=== PATIENT | male | born 1960 | race Caucasian/White ===

== ENCOUNTER 2016-05-23 04:30 | Inpatient (IN) | payer MEDICAID, SELFPAY ==
[2016-05-23] MEDS ORDERED: SODIUM CHLORIDE 0.9% 3 ML FLUSH FLUSH PRN ×2 (04:45→08:00)
[2016-05-23] MEDS ORDERED: PANTOPRAZOLE 40 MG VIAL IV ONE (04:55)
[2016-05-23] MEDS ORDERED: NS 1,000 ML IV ONE (04:55)
[2016-05-23 05:03] LABS: AUTOMATED BASOPHIL 0.8 % (0-2); AUTOMATED EOSINOPHIL 1.4 % (0-5); AUTOMATED MONOCYTE 2.8 % (3-10); MPV 8.6 fL (7.4-10.4)
[2016-05-23 05:15] LABS: BLOOD UREA NITROGEN 18 MG/DL (9-20); CALC CORRECTED 9.2 MG/DL (8.4-10.2); CALCIUM 8.8 MG/DL (8.4-10.2); CALCULATED OSMOLALITY 257 MOs/Kg (270-290); CHLORIDE 98 mEq/L (98-107); GLUCOSE 107 MG/DL (70-99); SODIUM LEVEL 132 mEq/L (137-146); TOTAL PROTEIN 6.7 G/DL (6.3-8.2)
--- NOTE | 2016-05-23 05:20 | EDPRACDOC ---
- General Information Chief Complaint: Abdominal Pain Stated Complaint: ABD PAIN/GI BLEED Time Seen by Provider: 05/23/16 04:45 Information Source: Patient Mode Of Arrival: Ambulance Home Medications: Home Medications Albuterol Sulfate [Proair Hfa] 2 puff INH QID PRN #1 inhaler 01/21/16 Albuterol Sulfate 2.5 mg NEB Q4H #1 box 03/12/16 Fluticasone/Salmeterol [Advair 250-50] 1 puff INH .BID SEE COMMENTS 03/12/16 Fexofenadine HCl [Candace] 180 mg PO DAILY 04/07/16 Levofloxacin [Levaquin] 750 mg PO DAILY #10 tab 04/07/16 Prednisone [Sterapred 10 mg/6 day pack] 21 tab PO DIR #1 pack 04/07/16 Unk Blood Pressure 0 mg PO .SEE COMMENTS 04/07/16 Unk Cholesterol 0 mg PO .SEE COMMENTS 04/07/16 Unk Prozac 0 mg PO .SEE COMMENTS 04/07/16 Allergies/Adverse Reactions: Allergies Allergy/AdvReac Type Severity Reaction Status Date / Time No Known Allergies Allergy Verified 05/23/16 04:48 - History of Present Illness Onset: 2 days HPI: LLQ and RLQ pain with 3 brown BMs yesterday, pain worse today and tonight noticed blood after BM. BRB. no N/V. no h/o same, no blood thinners. no F/C. Pain Location: Reports: RLQ, LLQ Pain Context: Reports: Spontaneous Pain Severity: Severe Pain Quality: Reports: Cramping Pain Radiation: Reports: No Radiation Adult Abdominal History: Denies: Bowel Obstruction Modifying Factors: improves with: Nothing Associated Signs & Symptoms: Denies: Hematuria, Vomiting, Melena, Dysuria - Treatment Prior to ED Arrival Reported Medications/Treatment [facility] Treatment BLS ED Past Medical History - History Reviewed Yes Nurses notes reviewed and agree except as marked - Patient Medical History Cardiac History: Reports: Hypertension, Hypercholesterolemia Respiratory History: Reports: Asthma, COPD, Emphysema Psychological History: Reports: Anxiety. Denies: Depression Surgical History: Reports: Hernia Surgery (bilateral) - Social Medical History Smoking Status: Former smoker EDM Review of Systems - Review of Systems ROS Negative Except as Marked: Yes All systems reviewed and were negative except as marked - Physical Exam Constitutional: Alert (Awake), No apparent distress Oriented to: Time, Person, Place Last recorded Vital Signs: Last Vital Signs Temp 97.6 F 05/23/16 04:42 Pulse 112 05/23/16 04:42 Resp 18 05/23/16 04:42 BP 129/68 05/23/16 04:42 Pulse Ox 93 05/23/16 04:42 Oxygen Pulse Oxygen Saturation 93 O2 Device Room Air Oxygen Flow Rate Fraction of Inspired Oxygen ( FIO2) - HEENT Head: Normal ( normocephalic) Eye Exam: Normal (PERRL, EOMI, Sclera white) Oropharynx: Normal (Pharynx:Moist without exudate,Gums-no swelling) Tympanic Membrane: Normal ENT EAC: Normal TMJ: Normal Nose: No Symptoms Reported (septum midline) Neck: Normal (FROM, trachea at midline) - Respiratory/Cardiovascular Respiratory: Normal - CTA (BBS clear to auscultation without adventitious sounds ) Cardiovascular: Normal (RRR without murmur, gallop or rub) - GI Auscultation: Normal Palpation: Normal (Soft,No rebound or guarding, non distended) Tenderness: RLQ, LLQ. negative: RUQ, LUQ Handley's Sign: Negative Rectal Exam: Other (brown stool, guaiac positive) - Musculoskeletal Back: Normal (Non-Tender) Extremities: Normal (Normal tone, Pulses 2+ No cyanosis or edema, FROM) - Integumentary Skin: Normal, Warm, Dry Lymphatics: Normal (no adenopathy) - Neurologic Memory Impaired: Normal Motor Function: Normal (Normal tone, Pulses 2+ No cyanosis or edema, FROM) Cranial Nerve: Normal (CN II-X11 intact sensation, strength 5/5) Cerebellar: Normal Mood Description: Normal Perception: Normal - Differential Diagnosis Diverticulitis - Results 05/23/16 04:30 05/23/16 04:30 WBC 15.6 xk/uL (3.8-10.8) H 05/23/16 04:30 RBC 4.33 xM/uL (4.70-6.10) L 05/23/16 04:30 Hgb 13.7 g/dL (14.0-18.0) L 05/23/16 04:30 Hct 40.4 % (42-52) L 05/23/16 04:30 MCV 94 fL (80-94) 05/23/16 04:30 MCH 31.7 pg (27-32) 05/23/16 04:30 MCHC 33.9 g/dl (33-36) 05/23/16 04:30 RDW 13.8 % (11.5-14.5) 05/23/16 04:30 Plt Count 204 xk/uL (130-400) 05/23/16 04:30 MPV 8.6 fL (7.4-10.4) 05/23/16 04:30 Neut % (Auto) 85.0 % (45-76) H 05/23/16 04:30 Lymph % (Auto) 10.0 % (17-44) L 05/23/16 04:30 [place] % (Auto) 2.8 % (3-10) L 05/23/16 04:30 Eos % (Auto) 1.4 % (0-5) 05/23/16 04:30 Baso % (Auto) 0.8 % (0-2) 05/23/16 04:30 Absolute Neuts (auto) 13.26 xk/uL (1.7-8.2) H 05/23/16 04:30 Absolute Lymphs (auto) 1.56 xk/uL (0.65-4.75) 05/23/16 04:30 PT 10.2 SEC (9.2-11.2) 05/23/16 04:30 INR 1.0 05/23/16 04:30 Sodium 132 mEq/L (137-146) L 05/23/16 04:30 Potassium 4.3 mEq/L (3.5-5.1) 05/23/16 04:30 Chloride 98 mEq/L (98-107) 05/23/16 04:30 Carbon Dioxide 25 mMOL/L (22-33) 05/23/16 04:30 Anion Gap 13 mEq/L (8-16) 05/23/16 04:30 BUN 18 MG/DL (9-20) 05/23/16 04:30 Creatinine 1.10 MG/DL (0.66-1.25) 05/23/16 04:30 Estimated GFR (MDRD) > 60 mL/min (>=60) 05/23/16 04:30 Glucose 107 MG/DL (70-99) H 05/23/16 04:30 Calculated Osmolality 257 MOs/Kg (270-290) L 05/23/16 04:30 Calcium 8.8 MG/DL (8.4-10.2) 05/23/16 04:30 Corrected Calcium 9.2 MG/DL (8.4-10.2) 05/23/16 04:30 Total Bilirubin 0.7 MG/DL (0.2-1.3) 05/23/16 04:30 AST 20 IU/L (17-59) 05/23/16 04:30 ALT 29 IU/L (21-72) 05/23/16 04:30 Alkaline Phosphatase 73 IU/L (38-126) 05/23/16 04:30 Total Protein 6.7 G/DL (6.3-8.2) 05/23/16 04:30 Albumin 3.6 G/DL (3.5-5.0) 05/23/16 04:30 Lab Results 05/23/16 05/23/16 05/23/16 04:30 04:30 04:30 WBC 15.6 H RBC 4.33 L Hgb 13.7 L Hct 40.4 L MCV 94 MCH 31.7 MCHC 33.9 RDW 13.8 Plt Count 204 MPV 8.6 Neut % (Auto) 85.0 H Lymph % (Auto) 10.0 L [place] % (Auto) 2.8 L Eos % (Auto) 1.4 Baso % (Auto) 0.8 Absolute Neuts (auto) 13.26 H Absolute Lymphs (auto) 1.56 PT 10.2 INR 1.0 Sodium 132 L Potassium 4.3 Chloride 98 Carbon Dioxide 25 Anion Gap 13 BUN 18 Creatinine 1.10 Estimated GFR (MDRD) > 60 Glucose 107 H Calculated Osmolality 257 L Calcium 8.8 Corrected Calcium 9.2 Total Bilirubin 0.7 AST 20 ALT 29 Alkaline Phosphatase 73 Total Protein 6.7 Albumin 3.6 - EKG EKG #1 EKG Time: 05:07 -: Yes EKG interpreted by me Rate: bpm: 105 [place]: Normal Rhythm: ST Block: None Hypertrophy: None ST: Nonsp - Diagnostic Imaging Abdomen Image interpreted by: Radiologist 05/23/16 06:35 Exam(s): [id number] CT/CT ABD-PELV W/IV CM CLINICAL DATA: 55-year-old male with lower abdominal pain. EXAM: CT ABDOMEN AND PELVIS WITH CONTRAST TECHNIQUE: Multidetector CT imaging of the abdomen and pelvis was performed using the standard protocol following bolus administration of intravenous contrast. CONTRAST: 80 cc Isovue 370 COMPARISON: CT dated 04/18/2011 FINDINGS: Focal ground-glass density at the left lung base likely represent atelectatic changes. No intra-abdominal free air. Trace free fluid within the pelvis. Trace perihepatic free fluid is also noted. The liver, gallbladder, pancreas, spleen, adrenal glands, kidneys, visualized ureters appear unremarkable. There is thickening of the superior and posterior bladder wall secondary to inflammatory changes of the sigmoid colon. The prostate and seminal vesicles are grossly unremarkable. There is extensive sigmoid diverticulosis with muscular hypertrophy. There is inflammatory changes of the sigmoid colon and surrounding fat compatible with acute diverticulitis. Small pockets of extraluminal air within the pelvis compatible with focally contained microperforation. A 3.7 x 0.9 cm fluid collection within the left hemipelvis appears somewhat organized and may represent an early abscess. There is induration of the fat plane between the sigmoid colon and bladder wall. No definite fistulous tract identified on this study. Retrograde filling of the bladder with contrast may provide better evaluation if clinically indicated. There is no evidence of bowel obstruction. Normal appendix. The abdominal aorta and IVC appear patent. No portal venous gas identified. There is no adenopathy. The abdominal wall soft tissues appear unremarkable. There is degenerative changes of the spine. Bilateral L5 pars defects noted. No acute fracture. IMPRESSION: Sigmoid diverticulitis with focally contained microperforations. Trace amount of perisigmoid fluid appears somewhat organized and may represent an early abscess formation. Clinical correlation and follow-up recommended. - Departure Final Diagnosis: Diverticulitis Referrals: Maria C Maguire MD [Primary Care Provider] - One Week Decision to Admit Time: 06:36 Decision to admit date: 05/23/16 Decision to admit: from ED - Physician Consulted Hospitalist Time Called: 06:36 (d/w Aurelio, she will d/w [facility] and plan admit)
[2016-05-23] MEDS ORDERED: HYDROmorphone 1 MG INJECTION IV ONE (05:27)
[2016-05-23] MEDS ORDERED: ONDANSETRON HCL 4 MG/2 ML VIAL IV ONE ×2 (05:28→06:56)
[2016-05-23] MEDS ORDERED: Metronidazole 500 mg/100 ml 500 MG/100 ML RTU IV ONE (05:56)
[2016-05-23] MEDS ORDERED: CIPROFLOXACIN HCL 500 MG TAB PO ONE (05:56)
[2016-05-23] MEDS ORDERED: Pharmacy Review for Metformin - IV Contrast Given SCH (06:00)
--- NOTE | 2016-05-23 06:34 | DIRPT ---
CLINICAL DATA: 55-year-old male with lower abdominal pain. EXAM: CT ABDOMEN AND PELVIS WITH CONTRAST TECHNIQUE: Multidetector CT imaging of the abdomen and pelvis was performed using the standard protocol following bolus administration of intravenous contrast. CONTRAST: 80 cc Isovue 370 COMPARISON: CT dated 04/18/2011 FINDINGS: Focal ground-glass density at the left lung base likely represent atelectatic changes. No intra-abdominal free air. Trace free fluid within the pelvis. Trace perihepatic free fluid is also noted. The liver, gallbladder, pancreas, spleen, adrenal glands, kidneys, visualized ureters appear unremarkable. There is thickening of the superior and posterior bladder wall secondary to inflammatory changes of the sigmoid colon. The prostate and seminal vesicles are grossly unremarkable. There is extensive sigmoid diverticulosis with muscular hypertrophy. There is inflammatory changes of the sigmoid colon and surrounding fat compatible with acute diverticulitis. Small pockets of extraluminal air within the pelvis compatible with focally contained microperforation. A 3.7 x 0.9 cm fluid collection within the left hemipelvis appears somewhat organized and may represent an early abscess. There is induration of the fat plane between the sigmoid colon and bladder wall. No definite fistulous tract identified on this study. Retrograde filling of the bladder with contrast may provide better evaluation if clinically indicated. There is no evidence of bowel obstruction. Normal appendix. The abdominal aorta and IVC appear patent. No portal venous gas identified. There is no adenopathy. The abdominal wall soft tissues appear unremarkable. There is degenerative changes of the spine. Bilateral L5 pars defects noted. No acute fracture. IMPRESSION: Sigmoid diverticulitis with focally contained microperforations. Trace amount of perisigmoid fluid appears somewhat organized and may represent an early abscess formation. Clinical correlation and follow-up recommended. Electronically Signed By: Aryan Beaulieu M.D. On: 05/23/2016 06:31
[2016-05-23] MEDS ORDERED: MORPHINE 4 MG/ML INJECTION IV ONE (06:56)
[2016-05-23] MEDS ORDERED: IBUPROFEN 400 MG TAB PO PRN (08:00)
[2016-05-23] MEDS ORDERED: PROMETHAZINE 25 MG/ML VIAL IV PRN (08:00)
[2016-05-23] MEDS ORDERED: ALBUTEROL 0.083% 3 ML NEB NEB PRN (08:00)
[2016-05-23] MEDS ORDERED: Non-Formulary Medication ITEM (Nebulizer [Erapid Nebulizer] 1 EACH) MC SCH (08:00)
--- NOTE | 2016-05-23 08:10 | HISTPHYS ---
- Chief Complaint 55-year-old gentleman presents emergency department complaining of blood in stool. - History of Present Illness 55-year-old man history of hypertension hypercholesterolemia depression asthma and emphysema who presented to the emergency department complaining of blood in his stool and abdominal pain for about 5 days. He states he has been taking fiber 6 500 mg Tylenol tablets for the past 5 days with no relief. In the emergency department he was fully evaluated and found to have a diverticulitis with a microperforation and small abscess. He was referred to me for further evaluation and management. He complains of pain across his lower abdomen down into the groin area and up through the rectum. He states that the blood was not a large amount but was only on paper in noted in the toilet. Given his signs and symptoms and findings on CT scan patient will be admitted to the hospital for management of acute diverticulitis with abscess. With regards to his pain: LLQ and RLQ pain with 3 brown BMs yesterday, pain worse today and tonight noticed blood after BM. BRB. no N/V. no h/o same, no blood thinners. no F/C. Pain Location: Reports: RLQ, LLQ Pain Context: Reports: Spontaneous Pain Severity: Severe Pain Quality: Reports: Cramping Pain Radiation: Reports: No Radiation Adult Abdominal History: Denies: Bowel Obstruction Modifying Factors: improves with: Nothing Associated Signs & Symptoms: Denies: Hematuria, Vomiting, Melena, Dysuria - Medical History Cardiac History: Reports: Hypertension, Hypercholesterolemia Respiratory History: Reports: Asthma, COPD, Emphysema Psychological History: Reports: Anxiety. Denies: Depression - Surgical History Reports: Hernia Surgery (bilateral) - Medictions/Allergies Allergies No Known Allergies Allergy (Verified 05/23/16 04:48) Current Medication List: Reviewed Home Medications Fluticasone/Salmeterol [Advair 250-50] 1 puff INH .BID SEE COMMENTS 03/12/16 Albuterol Sulfate MDI [Proventil HFA] 2 puff INH Q4H PRN 05/23/16 Albuterol Sulfate [Proventil, Ventolin] 2.5 mg NEB Q4H PRN 05/23/16 Nebulizer [Erapid Nebulizer] 1 each MC .UNKNOWN 05/23/16 See Comments About Past Meds 0 mg PO .SEE COMMENTS 05/23/16 - Family History Reports: No Significant History - Social History Travel Outside of [place] in the Last 3 Months?: No Lives: Alone Smoking Status: Former smoker Social History: Denies: Alcohol Use, Substance Use Disorder - Review of Systems Constitutional: negative: Chills, Fever, Diaphoresis Eyes: negative: Blurred Vision, Double Vision Ears: No Symptoms Reported (No ear pain or discharge) Mouth: No Symptoms Reported (No oropharyngeal lesions or erythema) Throat/Neck: No Symptoms Reported (No throat pain or swelling.No oropharyngeal lesions or erythema.) Respiratory: No Symptoms Reported (No cough, wheezing, or shortness of breath.) Cardiovascular: No Symptoms Reported (No chest pain or palpitations.) Gastrointestinal: Abdominal Pain, Diarrhea, Hematochezia Genitourinary: No Symptoms Reported (No dysuria or hematuria.) Neurological: No Symptoms Reported (No headache, dizziness, seizures, or focal weakness.) Musculoskeletal:: No Symptoms Reported Integumentary: No Symptoms Reported Allergic/Immunologic: No Symptoms Reported (no rashes or lesions) Hematologic: No Symptoms Reported (No chronic anemia, bleeding, or easy bruising.), Other (Lymphatics- no lymph node swelling or pain.) Endocrine: No Symptoms Reported (No thyroid issues, polyuria, or polydipsia.) Psychiatric: No Symptoms Reported (Fully oriented, with normal and appropriate affect.) - Physical Exam Vital Signs: Initial Vitals Temperature 98.3 F 05/23/16 04:41 Pulse Rate 98 05/23/16 04:41 Respiratory Rate 18 05/23/16 04:41 Blood Pressure 130/76 05/23/16 04:41 Pulse Oxygen Saturation 97 05/23/16 04:41 Constitutional: Alert (Awake, Fully oriented. Normal and appropriate affect.Well appearing. Well nourished.), No apparent distress Oriented to: Time, Person, Place - HEENT Head: Normal (normocephalic, atraumatic.), Other (No cervical lymphadenopathy. No supraclavicular lymphadenopathy. Neck: No palpable mass, supple , trachea midline.) Eye: Normal (pupils equal, reactive to light, and round; EOMI, Sclera white) Oropharynx: Normal (Pharynx: Moist without exudate,Gums-no swelling, No oropharyngeal lesions or erythema, Mucous membranes are dry.) Nose: No Symptoms Reported (septum midline, Nares patent, without discharge or bleeding.) Respiratory: Normal - CTA (Clear to auscultation bilaterally. No wheezing, rales , rhonchi. Chest wall movements are symmetric. No use of accessory muscles to breathe.) Cardiovascular: Normal (RRR , Normal S1, S2. No murmurs, rubs, or gallops. PMI non-displaced. Carotids: no carotid bruits. No bradycardia or tachycardia. DP pulses 2+ bilaterally.) - GI Auscultation: Decreased Palpation: Normal (Soft,non distended,nontender. No hepatosplenomegaly.) Tenderness: Moderate, Suprapubic. negative: Guarding, Rebound, Rigidity Handley's Sign: Negative Rectal Exam: Normal Stool: Brown - Musculoskeletal Back: Normal (Non-Tender) Extremities: Normal (Normal tone, DP pulses 2+ bilaterally, No cyanosis or edema bilaterally, FROM bilaterally.) - Integumentary Skin: Normal (Clean, dry, and intact. No rashes. No lesions.) Lymphatics: Normal (No cervical lymphadenopathy. No supraclavicular lymphadenopathy.) - Neurologic Memory Impaired: Normal Motor Function: Normal (Motor 5/5 throughout.Normal tone, Pulses 2+ No cyanosis or edema, FROM) Cranial Nerve: Normal (CN II-XII intact sensation, strength 5/5) Cerebellar: Normal (Babinski: toes downgoing bilaterally. Intact Finger to nose. Sensory grossly intact to light touch. Intact rapid alternating movements bilaterally. No pronator drift.) Mood Description: Normal (Fully oriented. Normal and appropriate affect.) - Focused CV Perfusion Exam Vital Signs: Last Vital Signs Temp 97.6 F 05/23/16 04:42 Pulse 99 05/23/16 07:28 Resp 18 05/23/16 07:28 BP 113/67 05/23/16 07:28 Pulse Ox 94 05/23/16 07:28 - Lab Results Laboratory Results - last 24 hr 05/23/16 05/23/16 05/23/16 04:30 04:30 04:30 WBC 15.6 H RBC 4.33 L Hgb 13.7 L Hct 40.4 L MCV 94 MCH 31.7 MCHC 33.9 RDW 13.8 Plt Count 204 MPV 8.6 Neut % (Auto) 85.0 H Lymph % (Auto) 10.0 L [place] % (Auto) 2.8 L Eos % (Auto) 1.4 Baso % (Auto) 0.8 Absolute Neuts (auto) 13.26 H Absolute Lymphs (auto) 1.56 PT 10.2 INR 1.0 Sodium 132 L Potassium 4.3 Chloride 98 Carbon Dioxide 25 Anion Gap 13 BUN 18 Creatinine 1.10 Estimated GFR (MDRD) > 60 Glucose 107 H Calculated Osmolality 257 L Calcium 8.8 Corrected Calcium 9.2 Total Bilirubin 0.7 AST 20 ALT 29 Alkaline Phosphatase 73 Total Protein 6.7 Albumin 3.6 - Diagnostic Findings EXAM: CT ABDOMEN AND PELVIS WITH CONTRAST TECHNIQUE: Multidetector CT imaging of the abdomen and pelvis was performed using the standard protocol following bolus administration of intravenous contrast. CONTRAST: 80 cc Isovue 370 COMPARISON: CT dated 04/18/2011 FINDINGS: Focal ground-glass density at the left lung base likely represent atelectatic changes. No intra-abdominal free air. Trace free fluid within the pelvis. Trace perihepatic free fluid is also noted. The liver, gallbladder, pancreas, spleen, adrenal glands, kidneys, visualized ureters appear unremarkable. There is thickening of the superior and posterior bladder wall secondary to inflammatory changes of the sigmoid colon. The prostate and seminal vesicles are grossly unremarkable. There is extensive sigmoid diverticulosis with muscular hypertrophy. There is inflammatory changes of the sigmoid colon and surrounding fat compatible with acute diverticulitis. Small pockets of extraluminal air within the pelvis compatible with focally contained microperforation. A 3.7 x 0.9 cm fluid collection within the left hemipelvis appears somewhat organized and may represent an early abscess. There is induration of the fat plane between the sigmoid colon and bladder wall. No definite fistulous tract identified on this study. Retrograde filling of the bladder with contrast may provide better evaluation if clinically indicated. There is no evidence of bowel obstruction. Normal appendix. The abdominal aorta and IVC appear patent. No portal venous gas identified. There is no adenopathy. The abdominal wall soft tissues appear unremarkable. There is degenerative changes of the spine. Bilateral L5 pars defects noted. No acute fracture. IMPRESSION: Sigmoid diverticulitis with focally contained microperforations. Trace amount of perisigmoid fluid appears somewhat organized and may represent an early abscess formation. Clinical correlation and follow-up recommended. Electronically Signed By: Aryan Beaulieu M.D. On: 05/23/2016 06:31 - Assessment (1) Abscess of sigmoid colon due to diverticulitis K57.20 - DVTRCLI OF LG INT W PERFORATION AND ABSCESS W/O BLEEDING Acute Present on Admission: Yes Patient will be admitted into the hospital for management of acute diverticulitis with abscess and micro perforation. He will be started on levofloxacin and metronidazole. Monitor closely if exam deteriorates may consider surgical or GI consultation. Patient will be allowed to eat as tolerated. (2) Hypertension I10 - ESSENTIAL (PRIMARY) HYPERTENSION Acute Present on Admission: Yes Qualifiers: Hypertension type: essential hypertension Qualified Code(s): I10 - Essential (primary) hypertension Patient has been off medicines for some time because he cannot afford them. I will order medications from the 4 dollar list. Currently blood pressure is stable will monitor while hospitalized. Will start medications if blood pressure becomes elevated. (3) Emphysema with chronic bronchitis J44.9 - CHRONIC OBSTRUCTIVE PULMONARY DISEASE, UNSPECIFIED Acute Present on Admission: Yes Patient states that he has had asthma his whole life he smoked until he was 32 but now has developed emphysema and is disabled due to it and will start disability in December. (4) Asthma J45.909 - UNSPECIFIED ASTHMA, UNCOMPLICATED Acute Present on Admission: Yes Qualifiers: Asthma severity: moderate persistent Asthma complication type: uncomplicated Qualified Code(s): J45.40 - Moderate persistent asthma, uncomplicated Currently patient without exacerbation of asthma bowl will restart nebulizers. (5) History of depression Z86.59 - PERSONAL HISTORY OF OTHER MENTAL AND BEHAVIORAL DISORDERS Chronic Present on Admission: Yes Noted he stated that he used to take Prozac in the past but when off it because he did feel like it was working any more. (6) Hypercholesterolemia E78.00 - PURE HYPERCHOLESTEROLEMIA, UNSPECIFIED Acute Present on Admission: Yes Patient states he used to be on medication but stop taking it because he could not afford it. Will start him on something that is on the 4 dollar list at discharge. - Plan Admit to the hospital IV antibiotics monitor examination closely. Case Care Discussed with: Patient, Consultants, Nursing Staff Total Time: 55 min Critical Care: No Couseling Time (>50% in counseling/coordination): No
[2016-05-23] MEDS: MORPHINE 2 MG/ML INJECTION IV PRN ×7 (08:53→23:31)
[2016-05-23] MEDS ORDERED: FLUTICASONE/SALMETEROL 250/50 DISKUS INH SCH (09:00)
[2016-05-23] MEDS: NS/KCl 20 mEq 1,000 ML IV SCH ×4 (10:10→19:31)
[2016-05-23] MEDS: Levofloxacin 750 mg/150 ml D5W 750 MG/150 ML RTU IV SCH (10:10)
[2016-05-23] MEDS: Albuterol/Ipratropium Neb 3 ML NEB NEB SCH ×3 (11:52→19:00)
[2016-05-23] MEDS: FLUTICASONE/SALMETEROL 250/50 DISKUS INH SCH ×2 (11:53→21:55)
[2016-05-23] MEDS: Metronidazole 500 mg/100 ml 500 MG/100 ML RTU IV SCH ×3 (12:00→23:18)
[2016-05-23] MEDS: PROBIOTIC BLEND TAB PO SCH ×2 (12:01→16:57)
[2016-05-23] MEDS ORDERED: SODIUM CHLORIDE 0.9% 10 ML FLUSH FLUSH ONE (14:53)
[2016-05-23] MEDS: SODIUM CHLORIDE 0.9% 3 ML FLUSH FLUSH SCH ×3 (15:41→16:42)
[2016-05-23] MEDS ORDERED: Vaccine Screening Complete SCH (17:00)
[2016-05-23] MEDS: Aluminum;Magnesium;Simethicone 30 ML UDC PO PRN (18:13)
[2016-05-23] MEDS: ENOXAPARIN 40 MG/0.4 ML PFS SQ SCH (18:36)
[2016-05-24] MEDS: Albuterol/Ipratropium Neb 3 ML NEB NEB SCH ×4 (01:00→19:13)
[2016-05-24] MEDS ORDERED: FLUTICASONE/SALMETEROL 250/50 DISKUS INH SCH (02:00)
[2016-05-24] MEDS: NS/KCl 20 mEq 1,000 ML IV SCH ×3 (02:10→14:00)
[2016-05-24] MEDS: MORPHINE 2 MG/ML INJECTION IV PRN ×10 (02:10→22:49)
[2016-05-24] MEDS: Metronidazole 500 mg/100 ml 500 MG/100 ML RTU IV SCH ×4 (05:14→22:49)
[2016-05-24] MEDS: ACETAMINOPHEN 325 MG/TAB TABLET PO PRN ×2 (05:14→14:03)
[2016-05-24] MEDS: SODIUM CHLORIDE 0.9% 3 ML FLUSH FLUSH SCH ×3 (05:29→18:07)
[2016-05-24 05:54] LABS: AUTOMATED BASOPHIL 0.2 % (0-2); AUTOMATED EOSINOPHIL 1.1 % (0-5); AUTOMATED LYMPH 7.6 % (17-44); AUTOMATED MONOCYTE 3.5 % (3-10); AUTOMATED NEUTROPHIL 87.6 % (45-76); MPV 8.2 fL (7.4-10.4)
[2016-05-24 06:22] LABS: BLOOD UREA NITROGEN 12 MG/DL (9-20); CALCIUM 7.7 MG/DL (8.4-10.2); CALCULATED OSMOLALITY 253 MOs/Kg (270-290); CHLORIDE 99 mEq/L (98-107); GLUCOSE 133 MG/DL (70-99); SODIUM LEVEL 130 mEq/L (137-146)
[2016-05-24] MEDS: FLUTICASONE/SALMETEROL 250/50 DISKUS INH SCH ×2 (07:37→19:15)
[2016-05-24] MEDS: Levofloxacin 750 mg/150 ml D5W 750 MG/150 ML RTU IV SCH (09:14)
[2016-05-24] MEDS: PROBIOTIC BLEND TAB PO SCH ×2 (13:04→18:09)
--- NOTE | 2016-05-24 17:26 | GENMEDPROG ---
Subjective Note: Patient complains of feeling bloated abdomen looks very tight. He is having significant continued pain. Notes Reviewed: Yes Events from last night noted and discussed with Clinical Staff Current Medication List: Reviewed Currently: Reports: Abdominal Pain. Denies: Diarrhea, Nausea and Vomiting, Fever/Chills DVT Prophylaxis: Yes - Physical Examination Vital Signs and I&O: Last Vital Signs Temp 98.6 F 05/24/16 10:14 Pulse 98 05/24/16 10:14 Resp 18 05/24/16 10:14 BP 111/68 05/24/16 10:14 Pulse Ox 95 05/24/16 10:14 Oxygen Pulse Oxygen Saturation 95 O2 Device Room Air Oxygen Flow Rate Fraction of Inspired Oxygen ( FIO2) Intake & Output 05/21/16 05/22/16 05/23/16 05/24/16 23:59 23:59 23:59 23:59 Intake Total 2240 3051 Output Total 250 895 Balance 1989 2155 Patient's weight 73.527 kg 74.752 kg General: Alert, Oriented x3, No acute distress, Well appearing, Well nourished HEENT: Normal (Normocephalic, atraumatic;EOMI.Sclera white, Nares patent, without discharge or bleeding. No oropharyngeal lesions or erythema. Mucous membranes are dry.) Lymphatics: Normal (No cervical lymphadenopathy. No supraclavicular lymphadenopathy.) Respiratory: Normal - CTA (Clear to auscultation bilaterally. No wheezing, rales , rhonchi. Chest wall movements are symmetric. No use of accessory muscles to breathe.) Cardiovascular: Regular rate and rhythm (No bradycardia or tachycardia), Normal S1, No Gallops,Rubs/Murmurs, Normal S2, Good Pedal Pulses (DP pulses 2+ bilaterally) GI: Tenderness, Other (Very firm compared to yesterday. Bowel sounds decreased) . negative: Soft Extremities/Musculoskeletal: Normal pulses (DP pulses 2+ bilaterally) Skin: Warm,Dry and Intact, No rashes, No significant lesion Neurological: Strength at 5/5 X4 ext (Motor 5/5 throughout.), Normal tone, Cranial nerves 3-12 NL ( 2-12 grossly intact.) Psych/Mental Status: Appropriate, Normal Affect Lab/DI/Studies Reviewed: Laboratory Results - last 24 hr 05/24/16 05/24/16 05:35 05:35 WBC 12.4 H RBC 3.67 L Hgb 11.7 L D Hct 34.6 L MCV 94 MCH 32.0 MCHC 34.0 RDW 13.9 Plt Count 162 MPV 8.2 Neut % (Auto) 87.6 H Lymph % (Auto) 7.6 L Flagler % (Auto) 3.5 Eos % (Auto) 1.1 Baso % (Auto) 0.2 Absolute Neuts (auto) 10.79 H Absolute Lymphs (auto) 0.87 Sodium 130 L Potassium 3.9 Chloride 99 Carbon Dioxide 24 Anion Gap 11 BUN 12 Creatinine 1.00 Estimated GFR (MDRD) > 60 Glucose 133 H Calculated Osmolality 253 L Calcium 7.7 L Magnesium 1.60 - Assessment (1) Abscess of sigmoid colon due to diverticulitis Acute K57.20 - DVTRCLI OF LG INT W PERFORATION AND ABSCESS W/O BLEEDING Comment/Plan: Abdominal pain was today: Patient is more bloated. Will consult Dr. Kiran from surgery for further evaluation. (2) Hypertension Acute I10 - ESSENTIAL (PRIMARY) HYPERTENSION Qualifiers: Hypertension type: essential hypertension Qualified Code(s): I10 - Essential (primary) hypertension Comment/Plan: Blood pressure currently acceptable. (3) Emphysema with chronic bronchitis Acute J44.9 - CHRONIC OBSTRUCTIVE PULMONARY DISEASE, UNSPECIFIED Comment/ Plan: Continue supportive care. No evidence of decompensation. (4) Asthma Acute J45.909 - UNSPECIFIED ASTHMA, UNCOMPLICATED Qualifiers: Asthma severity: moderate persistent Asthma complication type: uncomplicated Qualified Code(s): J45.40 - Moderate persistent asthma, uncomplicated Comment/Plan: Currently patient without exacerbation of asthma bowl will restart nebulizers. (5) History of depression Chronic Z86.59 - PERSONAL HISTORY OF OTHER MENTAL AND BEHAVIORAL DISORDERS Comment/Plan: Noted he stated that he used to take Prozac in the past but when off it because he did feel like it was working any more. (6) Hypercholesterolemia Acute E78.00 - PURE HYPERCHOLESTEROLEMIA, UNSPECIFIED Comment/Plan: Patient states he used to be on medication but stop taking it because he could not afford it. Will start him on something that is on the 4 dollar list at discharge. - Plan Continue current IV antibiotics. Case Care Discussed with: Patient Education/Counseling Given To: Patient Education/Counseling Given Regarding: Diagnosis, Treatment, Prognosis Total Time: 45 minutes. Critical Care: No Couseling Time (>50% in counseling/coordination): No
[2016-05-24] MEDS ORDERED: MORPHINE 2 MG/ML INJECTION IV PRN (17:34)
--- NOTE | 2016-05-24 17:39 | PCM.SURGCO ---
Consultation Date: 05/24/16 Requesting Physician: Nidhi Edge Consult Reason: Abdominal Pain - History of Present Illness 55 YO WM with diverticulitis. Has persistent pain. Denies any previous episodes of this. No melena or hematochezia, no dysuria. Denies any trauma. Has never had a colonoscopy. The pain is constant and at times severe. No alleviating factors other than pain meds. His CT showed diverticulitis. Chief Complaint: 55-year-old gentleman presents emergency department complaining of blood in stool. - Past Medical and Surgical History Cardiac History: Reports: No Significant History Respiratory History: Reports: No Significant History GI/ History: Reports: No Significant History Systemic History: Reports: No Significant History Musculoskeletal History: Reports: No Significant History Psychological History: Reports: No Significant History. Denies: Substance Use Disorder Neurological History: Reports: No Significant History Past Surgical History: Reports: No Significant History Allergies No Known Allergies Allergy (Verified 05/23/16 04:48) Home Medications Fluticasone/Salmeterol [Advair 250-50] 1 puff INH .BID SEE COMMENTS 03/12/16 Albuterol Sulfate MDI [Proventil HFA] 2 puff INH Q4H PRN 05/23/16 Albuterol Sulfate [Proventil, Ventolin] 2.5 mg NEB Q4H PRN 05/23/16 Nebulizer [Erapid Nebulizer] 1 each MC .UNKNOWN 05/23/16 See Comments About Past Meds 0 mg PO .SEE COMMENTS 05/23/16 - Social History Social History: Denies: Substance Use Disorder - Family History Reports: No Significant History - Review of Systems Constitutional: Chills, Fever, Fatigue, Loss of Appetite Eyes: negative: Discharge, Photophobia Ears: negative: Hearing Loss, Tinnitus Nose: negative: Deformity, Ecchymosis Throat/Neck: Hoarseness, Snoring Respiratory: negative: Cough, Wheezing Cardiovascular: negative: Chest Pain, Palpitations Gastrointestinal: Nausea, Abdominal Pain. negative: Vomiting, Diarrhea, Melena , Hematochezia, Dysphasia Genitourinary: negative: Dysuria, Hematuria Neurological: negative: Headache, Seizure Musculoskeletal:: negative: Joint Pain Integumentary: negative: Itching, Rash - Physical Exam Vital Signs: Initial Vitals Temperature 98.3 F 05/23/16 04:41 Pulse Rate 98 05/23/16 04:41 Respiratory Rate 18 05/23/16 04:41 Blood Pressure 130/76 05/23/16 04:41 Pulse Oxygen Saturation 97 05/23/16 04:41 Constitutional: No apparent distress, Alert Oriented to: Time, Person, Place - HEENT Head: negative: Deformity, Swelling Nose: negative: Bleeding, Discharge Respiratory: negative: Rales, Rhonchi, Wheezes Cardiovascular: Normal. negative: Irregular, Diastolic murmur, Systolic murmur - GI Auscultation: Normal Palpation: Tense. negative: Enlarged liver, Enlarged spleen Tenderness: Diffuse, Moderate. negative: Guarding, Rebound Handley's Sign: Negative - Musculoskeletal Back: negative: Ecchymosis, Laceration, CVA Tenderness Extremities: negative: Calf Tenderness, Edema - Lab Results 05/24/16 05:35 05/24/16 05:35 - Assessment/Plan (1) Asthma J45.909 - UNSPECIFIED ASTHMA, UNCOMPLICATED Acute Present on Admission: Yes moderate persistent uncomplicated J45.40 - Moderate persistent asthma, uncomplicated (2) Diverticulitis K57.92 - DVTRCLI OF INTEST, PART UNSP, W/O PERF OR ABSCESS W/O BLEED Acute Present on Admission: Yes (3) Emphysema with chronic bronchitis J44.9 - CHRONIC OBSTRUCTIVE PULMONARY DISEASE, UNSPECIFIED Acute (4) Hypertension I10 - ESSENTIAL (PRIMARY) HYPERTENSION Acute Present on Admission: Yes essential hypertension I10 - Essential (primary) hypertension Plan: Will change to clear liquids. Continue with current antibiotics. Adjust pain meds. Will repeat las in AM. Increase activity.
[2016-05-24] MEDS: ENOXAPARIN 40 MG/0.4 ML PFS SQ SCH (18:08)
[2016-05-24] MEDS: SIMETHICONE 80 MG TAB PO PRN ×2 (18:14→22:05)
[2016-05-25] MEDS: Albuterol/Ipratropium Neb 3 ML NEB NEB SCH ×4 (01:14→19:24)
[2016-05-25] MEDS: SIMETHICONE 80 MG TAB PO PRN ×3 (01:28→15:43)
[2016-05-25] MEDS: MORPHINE 2 MG/ML INJECTION IV PRN ×8 (01:28→22:37)
[2016-05-25] MEDS: SODIUM CHLORIDE 0.9% 3 ML FLUSH FLUSH SCH ×2 (05:12→17:31)
[2016-05-25] MEDS: Metronidazole 500 mg/100 ml 500 MG/100 ML RTU IV SCH ×4 (05:14→17:32)
[2016-05-25] MEDS: FLUTICASONE/SALMETEROL 250/50 DISKUS INH SCH ×2 (08:53→19:30)
[2016-05-25] MEDS: Docusate Sodium 100 MG CAP PO SCH ×2 (09:28→19:47)
[2016-05-25] MEDS: Levofloxacin 750 mg/150 ml D5W 750 MG/150 ML RTU IV SCH (09:28)
[2016-05-25] MEDS: ACETAMINOPHEN 325 MG/TAB TABLET PO PRN (09:35)
[2016-05-25] MEDS: PROBIOTIC BLEND TAB PO SCH ×2 (11:32→17:31)
--- NOTE | 2016-05-25 16:26 | PCM.SURGRO ---
- Subjective Patient: Reports: No new complaints, Still having pain, Pain is less, No Flatus , No Bowel Movement - Objective / Physical Exam Vital Signs: Temperature: 98.2 F (05/25/16 07:22) HR: 104 (05/25/16 07:22)RR: 18 (05/25/16 07 :22) BP: 100/61 (05/25/16 07:22)Pulse Ox: 95 (05/25/16 07:22) General: Alert, Oriented x3 HEENT: Normal, Anicteric Sclera Respiratory: Accessory Muscle Use Cardiovascular: Regular rate and rhythm Gastrointestinal: Distended, Tender Back: Normal Extremities: Normal pulses Psych/Mental Status: Appropriate Neurological: Normal Steady Gait Skin: Warm,Dry and Intact Laboratory/Diagnostics Reviewed: 05/24/16 05:35 05/24/16 05:35 - Assessment and Plan (1) Asthma Acute J45.909 - UNSPECIFIED ASTHMA, UNCOMPLICATED Present on Admission: Yes moderate persistent uncomplicated J45.40 - Moderate persistent asthma, uncomplicated (2) Diverticulitis Acute K57.92 - DVTRCLI OF INTEST, PART UNSP, W/O PERF OR ABSCESS W/O BLEED Present on Admission: Yes (3) Emphysema with chronic bronchitis Acute J44.9 - CHRONIC OBSTRUCTIVE PULMONARY DISEASE, UNSPECIFIED Present on Admission: Yes (4) Hypertension Acute I10 - ESSENTIAL (PRIMARY) HYPERTENSION Present on Admission: Yes essential hypertension I10 - Essential (primary) hypertension Plan: Patient slightly improved today. Will need to continue with IV antibiotics and remain on clear liquids.
[2016-05-25] MEDS: ENOXAPARIN 40 MG/0.4 ML PFS SQ SCH (17:31)
--- NOTE | 2016-05-25 18:25 | GENMEDPROG ---
Subjective Note: Patient bed responsive follows command. Denies any nausea vomiting but reports episodes of severe crampy abdominal pain. No diarrhea or melena. Denies and difficulties breathing cough phlegm production. Notes Reviewed: Yes Events from last night noted and discussed with Clinical Staff Current Medication List: Reviewed Currently: Reports: SANTOYO, Sputum, Constipation, Reflux Sx, Abdominal Pain. Denies: Diarrhea, Nausea and Vomiting, Fever/Chills DVT Prophylaxis: Yes - Physical Examination Vital Signs and I&O: Last Vital Signs Temp 97.8 F 05/25/16 15:30 Pulse 99 05/25/16 15:30 Resp 16 05/25/16 15:30 BP 137/80 05/25/16 15:30 Pulse Ox 99 05/25/16 15:30 Oxygen Pulse Oxygen Saturation 99 O2 Device Room Air Oxygen Flow Rate Fraction of Inspired Oxygen ( FIO2) Intake & Output 05/22/16 05/23/16 05/24/16 05/25/16 23:59 23:59 23:59 23:59 Intake Total 2240 4398 1045 Output Total 250 1845 100 Balance 1989 2553 945 Patient's weight 73.527 kg 74.752 kg 74.797 kg General: Alert, Oriented x3, Cooperative, Mild distress HEENT: Normal, PERRLA, EOMI, Anicteric Sclera Neck: Non-tender, Normal inspection Lymphatics: Normal Respiratory: Accessory Muscle Use, Diminished, Rhonchi Cardiovascular: Regular rate and rhythm, Normal S1, Normal S2, Murmurs GI: Soft, Tenderness, Other (distended) Extremities/Musculoskeletal: Normal pulses, DJD Skin: Warm,Dry and Intact, No rashes, No breakdown Neurological: Normal speech, Normal tone Psych/Mental Status: Appropriate, Anxious Lab/DI/Studies Reviewed: Allergies No Known Allergies Allergy (Verified 05/23/16 04:48) Last Vital Signs Temp 97.8 F 05/25/16 15:30 Pulse 99 05/25/16 15:30 Resp 16 05/25/16 15:30 BP 137/80 05/25/16 15:30 Pulse Ox 99 05/25/16 15:30 05/24/16 05:35 05/24/16 05:35 - Assessment (1) Abscess of sigmoid colon due to diverticulitis Acute K57.20 - DVTRCLI OF LG INT W PERFORATION AND ABSCESS W/O BLEEDING Comment/Plan: Continue IV antibiotics and IV fluids. Monitor abdominal symptoms. Follow by surgery (2) Diverticulitis Acute K57.92 - DVTRCLI OF INTEST, PART UNSP, W/O PERF OR ABSCESS W/O BLEED Comment/Plan: Continue IV antibiotics as outlined above. (3) Hypertension Acute I10 - ESSENTIAL (PRIMARY) HYPERTENSION Qualifiers: Hypertension type: essential hypertension Qualified Code(s): I10 - Essential (primary) hypertension Comment/Plan: Blood pressure currently acceptable. (4) Asthma Acute J45.909 - UNSPECIFIED ASTHMA, UNCOMPLICATED Qualifiers: Asthma severity: moderate persistent Asthma complication type: uncomplicated Qualified Code(s): J45.40 - Moderate persistent asthma, uncomplicated Comment/Plan: Currently patient without exacerbation of asthma bowl will restart nebulizers. Monitor pulmonary status (5) Abdominal pain Acute R10.9 - UNSPECIFIED ABDOMINAL PAIN Qualifiers: Abdominal location: left lower quadrant Qualified Code(s): R10.32 - Left lower quadrant pain Comment/Plan: Continue narcotic analgesics on as needed basis. (6) GERD (gastroesophageal reflux disease) Chronic K21.9 - GASTRO-ESOPHAGEAL REFLUX DISEASE WITHOUT ESOPHAGITIS Qualifiers: Esophagitis presence: without esophagitis Qualified Code(s): K21.9 - Gastro -esophageal reflux disease without esophagitis Comment/Plan: Continue PPI Case Care Discussed with: Patient, Consultants, Nursing Staff Education/Counseling Given To: Patient Education/Counseling Given Regarding: Diagnosis, Treatment, Prognosis, Follow Up Total Time: 45 min . Critical Care: No Code: 30973 (12+)
[2016-05-25] MEDS: NS 1,000 ML IV SCH (18:55)
[2016-05-25] MEDS: Aluminum;Magnesium;Simethicone 30 ML UDC PO PRN (19:00)
[2016-05-25] MEDS: PEG-ELECTROLYTE 17 GM PACK PO ONE ×2 (19:38→20:15)
[2016-05-26] MEDS: Metronidazole 500 mg/100 ml 500 MG/100 ML RTU IV SCH ×5 (00:30→23:42)
[2016-05-26] MEDS: Aluminum;Magnesium;Simethicone 30 ML UDC PO PRN ×3 (01:18→19:02)
[2016-05-26] MEDS: MORPHINE 2 MG/ML INJECTION IV PRN ×6 (01:19→21:18)
[2016-05-26] MEDS: Albuterol/Ipratropium Neb 3 ML NEB NEB SCH ×4 (01:25→19:29)
[2016-05-26] MEDS: NS 1,000 ML IV SCH ×3 (06:04→18:15)
[2016-05-26] MEDS: PANTOPRAZOLE 40 MG TAB PO SCH (06:07)
[2016-05-26] MEDS: SODIUM CHLORIDE 0.9% 3 ML FLUSH FLUSH SCH ×2 (06:08→18:15)
[2016-05-26] MEDS: FLUTICASONE/SALMETEROL 250/50 DISKUS INH SCH ×2 (08:37→19:31)
[2016-05-26 09:25] LABS: AUTOMATED BASOPHIL 0.4 % (0-2); AUTOMATED EOSINOPHIL 4.2 % (0-5); AUTOMATED LYMPH 14.8 % (17-44); AUTOMATED MONOCYTE 7.8 % (3-10); AUTOMATED NEUTROPHIL 72.8 % (45-76); MPV 7.5 fL (7.4-10.4)
[2016-05-26 09:31] LABS: BLOOD UREA NITROGEN 8 MG/DL (9-20); CALCIUM 8.1 MG/DL (8.4-10.2); CALCULATED OSMOLALITY 261 MOs/Kg (270-290); CHLORIDE 100 mEq/L (98-107); GLUCOSE 109 MG/DL (70-99); SODIUM LEVEL 136 mEq/L (137-146)
[2016-05-26] MEDS: Docusate Sodium 100 MG CAP PO SCH ×2 (09:34→21:14)
[2016-05-26] MEDS: Levofloxacin 750 mg/150 ml D5W 750 MG/150 ML RTU IV SCH (09:34)
[2016-05-26] MEDS ORDERED: DIATRIZOATE MEGLMINE/SODIUM 30 ML BOTTLE PO ONE (12:13)
--- NOTE | 2016-05-26 12:13 | PCM.SURGRO ---
- Subjective Patient: Reports: No new complaints, Still having pain, Pain is less, Flatus, No Bowel Movement - Objective / Physical Exam Vital Signs: Temperature: 98.1 F (05/26/16 06:00) HR: 92 (05/26/16 06:00)RR: 18 (05/26/16 06: 00) BP: 121/72 (05/26/16 06:00)Pulse Ox: 95 (05/26/16 06:00) General: Alert, Oriented x3, Cooperative HEENT: Normal, EOMI, Anicteric Sclera Respiratory: Normal - CTA. negative: Rales, Rhonchi, Wheezes Cardiovascular: Regular rate and rhythm, No Gallops,Rubs/Murmurs Gastrointestinal: Soft, Tender. negative: Guarding, Rigid Back: negative: Ecchymosis, CVA Tenderness Extremities: negative: Tenderness, Edema, Clubbing, Cyanosis Psych/Mental Status: Normal Affect, Cooperative. negative: Agitated, Anxious Neurological: Normal speech, Sensory intact Skin: Warm,Dry and Intact, No rashes, No breakdown Lymphatics: Normal. negative: Adenopathy, Lymphangitis Laboratory/Diagnostics Reviewed: 05/26/16 08:58 05/26/16 08:58 Laboratory Results - last 24 hr 05/26/16 05/26/16 08:58 08:58 WBC 9.4 RBC 3.98 L Hgb 12.7 L Hct 37.2 L MCV 94 MCH 31.8 MCHC 34.0 RDW 14.0 Plt Count 276 MPV 7.5 Neut % (Auto) 72.8 Lymph % (Auto) 14.8 L Randall % (Auto) 7.8 Eos % (Auto) 4.2 Baso % (Auto) 0.4 Absolute Neuts (auto) 6.77 Absolute Lymphs (auto) 1.32 Sodium 136 L Potassium 4.2 Chloride 100 Carbon Dioxide 28 Anion Gap 12 BUN 8 L Creatinine 0.80 Estimated GFR (MDRD) > 60 Glucose 109 H Calculated Osmolality 261 L Calcium 8.1 L Magnesium 2.00 - Assessment and Plan (1) Asthma Acute J45.909 - UNSPECIFIED ASTHMA, UNCOMPLICATED Present on Admission: Yes moderate persistent uncomplicated J45.40 - Moderate persistent asthma, uncomplicated (2) Diverticulitis Acute K57.92 - DVTRCLI OF INTEST, PART UNSP, W/O PERF OR ABSCESS W/O BLEED Present on Admission: Yes (3) Emphysema with chronic bronchitis Acute J44.9 - CHRONIC OBSTRUCTIVE PULMONARY DISEASE, UNSPECIFIED Present on Admission: Yes (4) Hypertension Acute I10 - ESSENTIAL (PRIMARY) HYPERTENSION Present on Admission: Yes essential hypertension I10 - Essential (primary) hypertension Plan: Continue with IV antibiotics. Will sched for follow up CT scan.
[2016-05-26] MEDS: PROBIOTIC BLEND TAB PO SCH ×2 (12:57→18:16)
--- NOTE | 2016-05-26 14:20 | DIRPT ---
CLINICAL DATA: Admission diagnosis. Abdominal pain and GI bleeding. Diverticulitis found on CT. Followup exam. EXAM: DG ABDOMEN ACUTE W/ 1V CHEST COMPARISON: CT, 05/23/2016. FINDINGS: There as known dilated small bowel with multiple air-fluid levels consistent with a partial small bowel obstruction. There is no free air. Soft tissue planes are poorly defined. Frontal chest radiograph shows lung base atelectasis. No evidence of pneumonia or edema. Heart, mediastinum and jose are unremarkable. IMPRESSION: 1. Small bowel dilation with multiple air-fluid levels has developed since the prior CT. The pattern is most suggestive of a small bowel obstruction. No free air. 2. Lung base atelectasis. No acute cardiopulmonary disease. Electronically Signed By: Erick Gastelum M.D. On: 05/26/2016 14:17
[2016-05-26] MEDS: OXYCODONE HCL 5 MG TABLET PO PRN ×2 (16:28→21:22)
--- NOTE | 2016-05-26 17:38 | GENMEDPROG ---
Subjective Note: Patient in bed responsive follows commands. Still fair amount of abdominal pain. Denies any nausea vomiting. No bowel movement by passing flatus. Pulmonary status stable.. Notes Reviewed: Yes Events from last night noted and discussed with Clinical Staff Current Medication List: Reviewed Currently: Reports: SANTOYO, Sputum, Constipation, Reflux Sx, Abdominal Pain. Denies: Diarrhea, Nausea and Vomiting, Fever/Chills DVT Prophylaxis: Yes - Physical Examination Vital Signs and I&O: Last Vital Signs Temp 97.7 F 05/26/16 13:15 Pulse 101 05/26/16 13:15 Resp 20 05/26/16 13:15 BP 146/91 05/26/16 13:15 Pulse Ox 100 05/26/16 13:15 Oxygen Pulse Oxygen Saturation 100 O2 Device Room Air Oxygen Flow Rate Fraction of Inspired Oxygen ( FIO2) Intake & Output 05/23/16 05/24/16 05/25/16 05/26/16 23:59 23:59 23:59 23:59 Intake Total 2240 4398 2154 1893 Output Total 250 1845 350 875 Balance 1989 2553 1804 1018 Patient's weight 73.527 kg 74.752 kg 74.797 kg 75.325 kg General: Alert, Oriented x3, Cooperative HEENT: Normal, PERRLA, EOMI, Anicteric Sclera Neck: Non-tender, Normal Trachea alignment Lymphatics: Normal. negative: Adenopathy, Lymphangitis Respiratory: Normal - CTA, Diminished. negative: Rales, Rhonchi, Wheezes Cardiovascular: Regular rate and rhythm, Normal S1, No Gallops,Rubs/Murmurs, Normal S2 GI: Tenderness Extremities/Musculoskeletal: negative: Tenderness, Edema, Clubbing, Cyanosis Skin: Warm,Dry and Intact, No rashes, No breakdown Neurological: Normal speech, Strength at 5/5 X4 ext, Normal tone, Cranial nerves 3-12 NL Psych/Mental Status: Normal Affect, Cooperative. negative: Agitated, Anxious Lab/DI/Studies Reviewed: Allergies No Known Allergies Allergy (Verified 05/23/16 04:48) Last Vital Signs Temp 97.7 F 05/26/16 13:15 Pulse 101 05/26/16 13:15 Resp 20 05/26/16 13:15 BP 146/91 05/26/16 13:15 Pulse Ox 100 05/26/16 13:15 05/26/16 08:58 05/26/16 08:58 Abnormal Lab Results 05/26/16 05/26/16 08:58 08:58 RBC 3.98 L Hgb 12.7 L Hct 37.2 L Lymph % (Auto) 14.8 L Sodium 136 L BUN 8 L Glucose 109 H Calculated Osmolality 261 L Calcium 8.1 L Patient Name: ANTHONY FAITH LOC: [facility] : 1960 AGE: 55 Order Date:05/25/16 Date of Service: Report # [id number] Ord Physician: Fredrick Villanueva MD Exam # [id number] Emergency Physician: Neymar Sunshine MD Exam(s): [id number] RAD/DG ACUTE ABDOMEN/3WAY CLINICAL DATA: Admission diagnosis. Abdominal pain and GI bleeding. Diverticulitis found on CT. Followup exam. EXAM: DG ABDOMEN ACUTE W/ 1V CHEST COMPARISON: CT, 05/23/2016. FINDINGS: There as known dilated small bowel with multiple air-fluid levels consistent with a partial small bowel obstruction. There is no free air. Soft tissue planes are poorly defined. Frontal chest radiograph shows lung base atelectasis. No evidence of pneumonia or edema. Heart, mediastinum and jose are unremarkable. IMPRESSION: 1. Small bowel dilation with multiple air-fluid levels has developed since the prior CT. The pattern is most suggestive of a small bowel obstruction. No free air. 2. Lung base atelectasis. No acute cardiopulmonary disease. Electronically Signed By: Erick Gastelum M.D. On: 05/26/2016 14:17 Electronically Signed By: Erick Gastelum MD Electronically Signed Date/Time: [id number] Dictate Date/Time: 05/26/16 1415 - Assessment (1) Abscess of sigmoid colon due to diverticulitis Acute K57.20 - DVTRCLI OF LG INT W PERFORATION AND ABSCESS W/O BLEEDING Comment/Plan: Continue IV antibiotics and IV fluids. Monitor abdominal symptoms. Follow by surgery . (2) Diverticulitis Acute K57.92 - DVTRCLI OF INTEST, PART UNSP, W/O PERF OR ABSCESS W/O BLEED Comment/Plan: Continue IV antibiotics as outlined above. (3) Hypertension Acute I10 - ESSENTIAL (PRIMARY) HYPERTENSION Qualifiers: Hypertension type: essential hypertension Qualified Code(s): I10 - Essential (primary) hypertension Comment/Plan: Blood pressure currently acceptable. (4) Asthma Acute J45.909 - UNSPECIFIED ASTHMA, UNCOMPLICATED Qualifiers: Asthma severity: moderate persistent Asthma complication type: uncomplicated Qualified Code(s): J45.40 - Moderate persistent asthma, uncomplicated Comment/Plan: Currently patient without exacerbation of asthma bowl will restart nebulizers. Monitor pulmonary status (5) Abdominal pain Acute R10.9 - UNSPECIFIED ABDOMINAL PAIN Qualifiers: Abdominal location: left lower quadrant Qualified Code(s): R10.32 - Left lower quadrant pain Comment/Plan: Continue narcotic analgesics on as needed basis. (6) GERD (gastroesophageal reflux disease) Chronic K21.9 - GASTRO-ESOPHAGEAL REFLUX DISEASE WITHOUT ESOPHAGITIS Qualifiers: Esophagitis presence: without esophagitis Qualified Code(s): K21.9 - Gastro -esophageal reflux disease without esophagitis Comment/Plan: Continue PPI (7) Dehydration Acute E86.0 - DEHYDRATION Comment/Plan: Continue IV fluids Case Care Discussed with: Patient, Consultants, Nursing Staff Education/Counseling Given To: Patient Education/Counseling Given Regarding: Diagnosis, Treatment, Prognosis, Follow Up Total Time: 45 min . Critical Care: No Code: 58457 (12+)
[2016-05-26] MEDS: ENOXAPARIN 40 MG/0.4 ML PFS SQ SCH (18:16)
[2016-05-26] MEDS: SIMETHICONE 80 MG TAB PO PRN (21:14)
[2016-05-27] MEDS: Aluminum;Magnesium;Simethicone 30 ML UDC PO PRN (00:22)
[2016-05-27] MEDS: MORPHINE 2 MG/ML INJECTION IV PRN ×7 (00:23→23:53)
[2016-05-27] MEDS: NS 1,000 ML IV SCH ×4 (01:00→23:56)
[2016-05-27] MEDS: Albuterol/Ipratropium Neb 3 ML NEB NEB SCH ×4 (01:56→19:23)
[2016-05-27] MEDS: OXYCODONE HCL 5 MG TABLET PO PRN ×4 (03:50→23:52)
[2016-05-27] MEDS: SIMETHICONE 80 MG TAB PO PRN (04:45)
[2016-05-27] MEDS: Metronidazole 500 mg/100 ml 500 MG/100 ML RTU IV SCH ×4 (04:47→23:58)
[2016-05-27] MEDS: PANTOPRAZOLE 40 MG TAB PO SCH (05:47)
[2016-05-27] MEDS: SODIUM CHLORIDE 0.9% 3 ML FLUSH FLUSH SCH ×2 (05:56→17:16)
[2016-05-27] MEDS ORDERED: DIATRIZOATE MEGLMINE/SODIUM 30 ML BOTTLE PO ONE (07:00)
[2016-05-27] MEDS: ONDANSETRON HCL 4 MG/2 ML VIAL IV PRN (08:37)
[2016-05-27] MEDS: FLUTICASONE/SALMETEROL 250/50 DISKUS INH SCH ×2 (09:02→19:24)
[2016-05-27] MEDS: Docusate Sodium 100 MG CAP PO SCH ×3 (09:44→21:12)
[2016-05-27] MEDS: Levofloxacin 750 mg/150 ml D5W 750 MG/150 ML RTU IV SCH (10:30)
--- NOTE | 2016-05-27 11:57 | DIRPT ---
CLINICAL DATA: Blood in stool, pelvic pain. History of diverticulitis. EXAM: CT PELVIS WITHOUT CONTRAST TECHNIQUE: Multidetector CT imaging of the pelvis was performed following the standard protocol without intravenous contrast. COMPARISON: CT 05/23/2016 FINDINGS: Oral contrast is not progressed to the LEFT colon or sigmoid colon during course of exam. Contrast is present in the ascending colon with large stool burden. No dilated loops of large small bowel. There is inflammation along the sigmoid colon at site of diverticulitis demonstrated on CT of 05/29/2016. There is no abscess formation. No macro perforation evident currently. There is interval resolution of small foci of gas seen on comparison exam. Within the pelvis there is a small fluid collection which has a defined rim measuring 2.5 by 3.1 cm (image 44, series 3). Similar volume but more defined than comparison CT. Abdominal aorta is normal. Iliac arteries are normal. No pelvic lymphadenopathy. Limited view of the kidneys, liver, spleen gallbladder unremarkable. IMPRESSION: 1. Some improvement in the diverticulitis of the proximal sigmoid colon. 2. Small fluid collection in the deep pelvis (posterior cul-de-sac) is more organized than comparison exam but with similar volume volume. This could represent developing abscess. Electronically Signed By: Jaxson Gallardo M.D. On: 05/27/2016 11:54
[2016-05-27] MEDS ORDERED: BISACODYL 10 MG SUPP PR ONE (12:00)
--- NOTE | 2016-05-27 12:04 | PCM.SURGRO ---
- Subjective Patient: Reports: No new complaints, Pain is less, Flatus. Denies: No Bowel Movement, Nausea - Objective / Physical Exam Vital Signs: Temperature: 98.1 F (05/27/16 06:19) HR: 95 (05/27/16 06:19)RR: 18 (05/27/16 06: 19) BP: 142/89 (05/27/16 06:19)Pulse Ox: 95 (05/27/16 06:19) General: Alert, Oriented x3 HEENT: EOMI, Anicteric Sclera Respiratory: Normal - CTA. negative: Rales, Rhonchi Cardiovascular: Regular rate and rhythm, No Gallops,Rubs/Murmurs Gastrointestinal: Distended. negative: Tender, Guarding, Rigid Back: negative: Ecchymosis, CVA Tenderness Extremities: negative: Tenderness, Edema, Clubbing, Cyanosis Psych/Mental Status: Cooperative. negative: Agitated, Anxious Neurological: Normal speech. negative: Drowsy Laboratory/Diagnostics Reviewed: 05/26/16 08:58 05/26/16 08:58 - Assessment and Plan (1) Asthma Acute J45.909 - UNSPECIFIED ASTHMA, UNCOMPLICATED Present on Admission: Yes moderate persistent uncomplicated J45.40 - Moderate persistent asthma, uncomplicated (2) Diverticulitis Acute K57.92 - DVTRCLI OF INTEST, PART UNSP, W/O PERF OR ABSCESS W/O BLEED Present on Admission: Yes (3) Emphysema with chronic bronchitis Acute J44.9 - CHRONIC OBSTRUCTIVE PULMONARY DISEASE, UNSPECIFIED Present on Admission: Yes (4) Hypertension Acute I10 - ESSENTIAL (PRIMARY) HYPERTENSION Present on Admission: Yes essential hypertension I10 - Essential (primary) hypertension Plan: CT reviewed. Needs continued antibiotics for now. Would not advance diet yet.
[2016-05-27] MEDS: SIMETHICONE 80 MG TAB PO SCH ×5 (13:19→23:52)
[2016-05-27] MEDS: PROBIOTIC BLEND TAB PO SCH ×2 (13:20→17:17)
[2016-05-27] MEDS: MAGNESIUM HYDROXIDE 30 ML BOTTLE PO SCH (13:54)
--- NOTE | 2016-05-27 15:48 | GENMEDPROG ---
Subjective Note: Patient in bed responsive follows commands. Abdominal pain improved. Reports no nausea but no vomiting. No bowel movement, only occasional flatus. Notes Reviewed: Yes Events from last night noted and discussed with Clinical Staff Current Medication List: Reviewed Currently: Reports: SANTOYO, Sputum, Constipation, Reflux Sx, Abdominal Pain. Denies: Diarrhea, Nausea and Vomiting, Fever/Chills DVT Prophylaxis: Yes - Physical Examination Vital Signs and I&O: Last Vital Signs Temp 98.7 F 05/27/16 13:33 Pulse 104 05/27/16 13:33 Resp 20 05/27/16 13:33 BP 133/88 05/27/16 13:33 Pulse Ox 96 05/27/16 13:33 Oxygen Pulse Oxygen Saturation 96 O2 Device Room Air Oxygen Flow Rate Fraction of Inspired Oxygen ( FIO2) Intake & Output 05/24/16 05/25/16 05/26/16 05/27/16 23:59 23:59 23:59 23:59 Intake Total 4398 2154 3341 2255 Output Total 1845 350 875 Balance 2553 1804 2466 2255 Patient's weight 74.752 kg 74.797 kg 75.325 kg 75.551 kg General: Alert, Oriented x3, Cooperative, Mild distress HEENT: Normal, PERRLA, EOMI, Anicteric Sclera Neck: Non-tender, Normal inspection Lymphatics: Normal Respiratory: Normal - CTA, Diminished, Rhonchi. negative: Rales Cardiovascular: Regular rate and rhythm, Normal S1, No Gallops,Rubs/Murmurs, Normal S2 GI: Tenderness, Other (distended) Extremities/Musculoskeletal: Normal pulses. negative: Tenderness, Edema, Clubbing, Cyanosis Skin: Warm,Dry and Intact, No rashes, No breakdown, No significant lesion Neurological: Normal speech, Normal tone, Cranial nerves 3-12 NL Psych/Mental Status: Cooperative, Anxious. negative: Agitated Lab/DI/Studies Reviewed: Allergies No Known Allergies Allergy (Verified 05/23/16 04:48) 05/26/16 08:58 05/26/16 08:58 Patient Name: ANTHONY FAITH LOC: [facility] : 1960 AGE: 55 Order Date:05/26/16 Date of Service: Report # [id number] Ord Physician: Erick Kiran MD Exam # [id number] Emergency Physician: Neymar Sunshine MD Exam(s): [id number] CT/CT PELVIS W/O IV CM CLINICAL DATA: Blood in stool, pelvic pain. History of diverticulitis. EXAM: CT PELVIS WITHOUT CONTRAST TECHNIQUE: Multidetector CT imaging of the pelvis was performed following the standard protocol without intravenous contrast. COMPARISON: CT 05/23/2016 FINDINGS: Oral contrast is not progressed to the LEFT colon or sigmoid colon during course of exam. Contrast is present in the ascending colon with large stool burden. No dilated loops of large small bowel. There is inflammation along the sigmoid colon at site of diverticulitis demonstrated on CT of 05/29/2016. There is no abscess formation. No macro perforation evident currently. There is interval resolution of small foci of gas seen on comparison exam. Within the pelvis there is a small fluid collection which has a defined rim measuring 2.5 by 3.1 cm (image 44, series 3). Similar volume but more defined than comparison CT. Abdominal aorta is normal. Iliac arteries are normal. No pelvic lymphadenopathy. Limited view of the kidneys, liver, spleen gallbladder unremarkable. IMPRESSION: 1. Some improvement in the diverticulitis of the proximal sigmoid colon. 2. Small fluid collection in the deep pelvis (posterior cul-de-sac) is more organized than comparison exam but with similar volume volume. This could represent developing abscess. Electronically Signed By: Jaxson Gallardo M.D. On: 05/27/2016 11:54 - Assessment (1) Abscess of sigmoid colon due to diverticulitis Acute K57.20 - DVTRCLI OF LG INT W PERFORATION AND ABSCESS W/O BLEEDING Comment/Plan: Continue IV fluids IV antibiotics and narcotic analgesics. Repeated CT shows improvement in area of diverticulitis.. Follow by surgery (2) Diverticulitis Acute K57.92 - DVTRCLI OF INTEST, PART UNSP, W/O PERF OR ABSCESS W/O BLEED Comment/Plan: Continue IV antibiotics as outlined above. (3) Hypertension Acute I10 - ESSENTIAL (PRIMARY) HYPERTENSION Qualifiers: Hypertension type: essential hypertension Qualified Code(s): I10 - Essential (primary) hypertension Comment/Plan: Blood pressure currently acceptable. (4) Asthma Acute J45.909 - UNSPECIFIED ASTHMA, UNCOMPLICATED Qualifiers: Asthma severity: moderate persistent Asthma complication type: uncomplicated Qualified Code(s): J45.40 - Moderate persistent asthma, uncomplicated Comment/Plan: Stable, no wheezes on exam. Continue p.r.n. nebulizers. (5) Abdominal pain Acute R10.9 - UNSPECIFIED ABDOMINAL PAIN Qualifiers: Abdominal location: left lower quadrant Qualified Code(s): R10.32 - Left lower quadrant pain Comment/Plan: Continue narcotic analgesics on as needed basis. (6) GERD (gastroesophageal reflux disease) Chronic K21.9 - GASTRO-ESOPHAGEAL REFLUX DISEASE WITHOUT ESOPHAGITIS Qualifiers: Esophagitis presence: without esophagitis Qualified Code(s): K21.9 - Gastro -esophageal reflux disease without esophagitis Comment/Plan: Continue PPI (7) Dehydration Acute E86.0 - DEHYDRATION Comment/Plan: Continue IV fluids Case Care Discussed with: Patient, Consultants, Nursing Staff, Resource Management, Treatment Specialist Education/Counseling Given To: Patient Education/Counseling Given Regarding: Diagnosis, Treatment, Prognosis, Follow Up Total Time: 45 min . Critical Care: No Code: 38955 (12+)
[2016-05-27] MEDS: ENOXAPARIN 40 MG/0.4 ML PFS SQ SCH (17:23)
[2016-05-27] MEDS: ACETAMINOPHEN 325 MG/TAB TABLET PO PRN (21:12)
[2016-05-28] MEDS: Albuterol/Ipratropium Neb 3 ML NEB NEB SCH ×4 (01:18→19:32)
[2016-05-28] MEDS: SIMETHICONE 80 MG TAB PO SCH ×8 (03:21→23:09)
[2016-05-28] MEDS: MORPHINE 2 MG/ML INJECTION IV PRN ×6 (03:29→22:08)
[2016-05-28] MEDS: Metronidazole 500 mg/100 ml 500 MG/100 ML RTU IV SCH ×4 (04:35→23:09)
[2016-05-28] MEDS: PANTOPRAZOLE 40 MG TAB PO SCH (05:59)
[2016-05-28] MEDS: SODIUM CHLORIDE 0.9% 3 ML FLUSH FLUSH SCH ×2 (05:59→17:28)
[2016-05-28] MEDS: OXYCODONE HCL 5 MG TABLET PO PRN ×4 (06:01→23:08)
[2016-05-28] MEDS: FLUTICASONE/SALMETEROL 250/50 DISKUS INH SCH ×2 (07:51→19:35)
[2016-05-28 08:02] LABS: BLOOD UREA NITROGEN 9 MG/DL (9-20); CALCULATED OSMOLALITY 259 MOs/Kg (270-290); CHLORIDE 101 mEq/L (98-107); GLUCOSE 95 MG/DL (70-99); SODIUM LEVEL 135 mEq/L (137-146)
[2016-05-28] MEDS: MAGNESIUM HYDROXIDE 30 ML BOTTLE PO SCH (08:53)
[2016-05-28] MEDS: Docusate Sodium 100 MG CAP PO SCH ×2 (08:53→19:42)
[2016-05-28] MEDS: Levofloxacin 750 mg/150 ml D5W 750 MG/150 ML RTU IV SCH (09:10)
[2016-05-28] MEDS: PROBIOTIC BLEND TAB PO SCH ×2 (11:22→17:22)
[2016-05-28] MEDS: NS 1,000 ML IV SCH ×2 (12:21→17:28)
--- NOTE | 2016-05-28 16:53 | GENMEDPROG ---
Subjective Note: Patient in bed responsive follows commands. Abdominal pain slowly improving. Patient reports episodes of nausea but no vomiting he has been passing gas and had 2 bowel movements since yesterday. Notes Reviewed: Yes Events from last night noted and discussed with Clinical Staff Current Medication List: Reviewed Currently: Reports: SANTOYO, Sputum, Constipation, Reflux Sx, Abdominal Pain. Denies: Diarrhea, Nausea and Vomiting, Fever/Chills DVT Prophylaxis: Yes - Physical Examination Vital Signs and I&O: Last Vital Signs Temp 97.9 F 05/28/16 13:40 Pulse 96 05/28/16 13:40 Resp 18 05/28/16 13:40 BP 149/91 05/28/16 13:40 Pulse Ox 95 05/28/16 13:40 Oxygen Pulse Oxygen Saturation 95 O2 Device Room Air Oxygen Flow Rate Fraction of Inspired Oxygen ( FIO2) Intake & Output 05/25/16 05/26/16 05/27/16 05/28/16 23:59 23:59 23:59 23:59 Intake Total 2154 3341 2952 1472 Output Total 350 875 Balance 1804 2466 2952 1472 Patient's weight 74.797 kg 75.325 kg 75.551 kg 76.204 kg General: Alert, Oriented x3, Cooperative, Mild distress HEENT: Normal, PERRLA, EOMI, Anicteric Sclera Neck: Non-tender, Normal inspection Lymphatics: Normal Respiratory: Normal - CTA, Diminished, Rhonchi. negative: Rales Cardiovascular: Regular rate and rhythm, Normal S1, No Gallops,Rubs/Murmurs, Normal S2 GI: No masses, Obese, Tenderness, Other (distended) Extremities/Musculoskeletal: Normal pulses. negative: Tenderness, Edema, Clubbing, Cyanosis Skin: Warm,Dry and Intact, No rashes, No breakdown, No significant lesion Neurological: Normal speech, Normal tone, Cranial nerves 3-12 NL Psych/Mental Status: Cooperative, Anxious. negative: Agitated Lab/DI/Studies Reviewed: Allergies No Known Allergies Allergy (Verified 05/23/16 04:48) 05/26/16 08:58 05/28/16 06:34 - Assessment (1) Abscess of sigmoid colon due to diverticulitis Acute K57.20 - DVTRCLI OF LG INT W PERFORATION AND ABSCESS W/O BLEEDING Comment/Plan: Continue IV fluids IV antibiotics and narcotic analgesics. Repeated CT shows improvement in area of diverticulitis.. Follow by surgery . Continue supportive care (2) Diverticulitis Acute K57.92 - DVTRCLI OF INTEST, PART UNSP, W/O PERF OR ABSCESS W/O BLEED Comment/Plan: Continue IV antibiotics as outlined above. (3) Hypertension Acute I10 - ESSENTIAL (PRIMARY) HYPERTENSION Qualifiers: Hypertension type: essential hypertension Qualified Code(s): I10 - Essential (primary) hypertension Comment/Plan: Blood pressure currently acceptable. (4) Asthma Acute J45.909 - UNSPECIFIED ASTHMA, UNCOMPLICATED Qualifiers: Asthma severity: moderate persistent Asthma complication type: uncomplicated Qualified Code(s): J45.40 - Moderate persistent asthma, uncomplicated Comment/Plan: Stable, no wheezes on exam. Continue p.r.n. nebulizers. (5) Abdominal pain Acute R10.9 - UNSPECIFIED ABDOMINAL PAIN Qualifiers: Abdominal location: left lower quadrant Qualified Code(s): R10.32 - Left lower quadrant pain Comment/Plan: Continue narcotic analgesics on as needed basis. (6) GERD (gastroesophageal reflux disease) Chronic K21.9 - GASTRO-ESOPHAGEAL REFLUX DISEASE WITHOUT ESOPHAGITIS Qualifiers: Esophagitis presence: without esophagitis Qualified Code(s): K21.9 - Gastro -esophageal reflux disease without esophagitis Comment/Plan: Continue PPI (7) Dehydration Acute E86.0 - DEHYDRATION Comment/Plan: Continue IV fluids Case Care Discussed with: Patient, Consultants, Nursing Staff Education/Counseling Given To: Patient Education/Counseling Given Regarding: Diagnosis, Treatment, Prognosis, Follow Up Total Time: 45 min . Critical Care: No Code: 62323 (12+)
[2016-05-28] MEDS: ONDANSETRON HCL 4 MG/2 ML VIAL IV PRN ×2 (17:23→23:17)
[2016-05-28] MEDS: ENOXAPARIN 40 MG/0.4 ML PFS SQ SCH (17:27)
--- NOTE | 2016-05-28 18:09 | PCM.SURGRO ---
- Subjective Patient: Reports: No new complaints, Feels better, Pain is less, Flatus, Bowel Movement. Denies: Diarrhea, Blood in Stool, Nausea, Vomiting - Objective / Physical Exam Vital Signs: Temperature: 97.9 F (05/28/16 13:40) HR: 96 (05/28/16 13:40)RR: 18 (05/28/16 13: 40) BP: 149/91 (05/28/16 13:40)Pulse Ox: 95 (05/28/16 13:40) General: Alert, Oriented x3, Cooperative, No acute distress HEENT: Normal, EOMI, Anicteric Sclera Respiratory: Normal - CTA. negative: Rales, Rhonchi, Wheezes Cardiovascular: Regular rate and rhythm, No Gallops,Rubs/Murmurs Gastrointestinal: Soft, Tender. negative: Guarding, Firm, Rigid Back: negative: Ecchymosis, CVA Tenderness Extremities: Edema. negative: Tenderness, Cyanosis Psych/Mental Status: Normal Affect, Cooperative. negative: Agitated Skin: Warm,Dry and Intact, No rashes Laboratory/Diagnostics Reviewed: 05/26/16 08:58 05/28/16 06:34 Laboratory Results - last 24 hr 05/28/16 06:34 Sodium 135 L Potassium 4.2 Chloride 101 Carbon Dioxide 27 Anion Gap 11 BUN 9 Creatinine 0.80 Estimated GFR (MDRD) > 60 Glucose 95 Calculated Osmolality 259 L Calcium 8.0 L Magnesium 2.00 - Assessment and Plan (1) Asthma Acute J45.909 - UNSPECIFIED ASTHMA, UNCOMPLICATED Present on Admission: Yes moderate persistent uncomplicated J45.40 - Moderate persistent asthma, uncomplicated (2) Diverticulitis Acute K57.92 - DVTRCLI OF INTEST, PART UNSP, W/O PERF OR ABSCESS W/O BLEED Present on Admission: Yes (3) Emphysema with chronic bronchitis Acute J44.9 - CHRONIC OBSTRUCTIVE PULMONARY DISEASE, UNSPECIFIED Present on Admission: Yes (4) Hypertension Acute I10 - ESSENTIAL (PRIMARY) HYPERTENSION Present on Admission: Yes essential hypertension I10 - Essential (primary) hypertension Plan: [place]knue with IV antibiotics. Stay onclears for now. Cont with stool softeners and gentle laxative.
[2016-05-29] MEDS: Albuterol/Ipratropium Neb 3 ML NEB NEB SCH ×4 (01:24→19:15)
[2016-05-29] MEDS: MORPHINE 2 MG/ML INJECTION IV PRN ×5 (02:07→22:56)
[2016-05-29] MEDS: SIMETHICONE 80 MG TAB PO SCH ×8 (02:07→22:55)
[2016-05-29] MEDS: OXYCODONE HCL 5 MG TABLET PO PRN ×4 (04:02→20:20)
[2016-05-29] MEDS: Metronidazole 500 mg/100 ml 500 MG/100 ML RTU IV SCH ×4 (05:06→22:56)
[2016-05-29] MEDS: SODIUM CHLORIDE 0.9% 3 ML FLUSH FLUSH SCH ×2 (05:06→17:12)
[2016-05-29] MEDS: PANTOPRAZOLE 40 MG TAB PO SCH (05:06)
[2016-05-29] MEDS: Docusate Sodium 100 MG CAP PO SCH ×2 (07:54→20:20)
[2016-05-29] MEDS: MAGNESIUM HYDROXIDE 30 ML BOTTLE PO SCH (07:54)
[2016-05-29] MEDS: FLUTICASONE/SALMETEROL 250/50 DISKUS INH SCH ×2 (08:16→19:22)
[2016-05-29] MEDS: NS 1,000 ML IV SCH ×2 (10:34→20:23)
[2016-05-29] MEDS: Levofloxacin 750 mg/150 ml D5W 750 MG/150 ML RTU IV SCH (10:35)
[2016-05-29] MEDS: PROBIOTIC BLEND TAB PO SCH ×2 (12:15→17:11)
--- NOTE | 2016-05-29 12:36 | GENMEDPROG ---
Chief Complaint: Diverticulitis Subjective Note: Still has intermittent abdominal pain, denies any nausea. Had a bowel movement a couple days ago, but no flatus since then. Feels that his abdominal distention is overall improved. Has been ambulating. Notes Reviewed: Yes Events from last night noted and discussed with Clinical Staff Current Medication List: Reviewed Currently: Reports: SANTOYO, Sputum, Reflux Sx, Abdominal Pain. Denies: Diarrhea, Nausea and Vomiting, Fever/Chills DVT Prophylaxis: Yes - Physical Examination Vital Signs and I&O: Last Vital Signs Temp 97.6 F 05/29/16 05:07 Pulse 97 05/29/16 05:07 Resp 20 05/29/16 05:07 BP 165/92 05/29/16 05:07 Pulse Ox 95 05/29/16 05:07 Oxygen Pulse Oxygen Saturation 95 O2 Device Room Air Oxygen Flow Rate Fraction of Inspired Oxygen ( FIO2) Intake & Output 05/27/16 05/28/16 05/29/16 05/30/16 06:59 06:59 06:59 06:59 Intake Total 2728 3224 1927 240 Output Total 400 Balance 2328 3224 1927 240 Patient's weight 75.551 kg 76.204 kg 80.739 kg General: Alert, Oriented x3, Cooperative, No acute distress HEENT: Normal, EOMI, Anicteric Sclera Respiratory: Normal - CTA. negative: Rales, Rhonchi, Wheezes Cardiovascular: Regular rate and rhythm, No Gallops,Rubs/Murmurs GI: Obese, Tenderness, Other (Distended and tight. No active bowel sounds at this time.) Extremities/Musculoskeletal: Edema. negative: Tenderness, Cyanosis Skin: Warm,Dry and Intact, No rashes Psych/Mental Status: Normal Affect, Cooperative. negative: Agitated Lab/DI/Studies Reviewed: Laboratory Tests 05/28/16 06:34 Potassium 4.2 BUN 9 Creatinine 0.80 - Assessment (1) Abscess of sigmoid colon due to diverticulitis Acute K57.20 - DVTRCLI OF LG INT W PERFORATION AND ABSCESS W/O BLEEDING Comment/Plan: Continue IV fluids, IV antibiotics Levaquin and Flagyl. Repeated CT scan showed areas of improvement in his diverticulitis. Being followed by General surgery. Continue otherwise supportive care. (2) Abdominal pain Acute R10.9 - UNSPECIFIED ABDOMINAL PAIN Qualifiers: Abdominal location: left lower quadrant Qualified Code(s): R10.32 - Left lower quadrant pain Comment/Plan: Continue narcotic analgesics on as needed basis. (3) Asthma Acute J45.909 - UNSPECIFIED ASTHMA, UNCOMPLICATED Qualifiers: Asthma severity: moderate persistent Asthma complication type: uncomplicated Qualified Code(s): J45.40 - Moderate persistent asthma, uncomplicated Comment/Plan: Stable, no wheezes on exam. Continue p.r.n. nebulizers. (4) Hypercholesterolemia Acute E78.00 - PURE HYPERCHOLESTEROLEMIA, UNSPECIFIED Comment/Plan: Patient states he used to be on medication but stop taking it because he could not afford it. Will start him on something that is on the 4 dollar list at discharge. (5) Hypertension Acute I10 - ESSENTIAL (PRIMARY) HYPERTENSION Qualifiers: Hypertension type: essential hypertension Qualified Code(s): I10 - Essential (primary) hypertension Comment/Plan: Blood pressure currently acceptable. (6) GERD (gastroesophageal reflux disease) Chronic K21.9 - GASTRO-ESOPHAGEAL REFLUX DISEASE WITHOUT ESOPHAGITIS Qualifiers: Esophagitis presence: without esophagitis Qualified Code(s): K21.9 - Gastro -esophageal reflux disease without esophagitis Comment/Plan: Continue PPI Case Care Discussed with: Patient, Nursing Staff Total Time: 39
--- NOTE | 2016-05-29 14:05 | PCM.SURGRO ---
- Subjective Patient: Reports: No new complaints, Pain is less, Tolerating liquids well, No Flatus, No Bowel Movement. Denies: Diarrhea, Nausea, Vomiting, Shortness of breath - Objective / Physical Exam Vital Signs: Temperature: 97.6 F (05/29/16 14:00) HR: 99 (05/29/16 14:00)RR: 20 (05/29/16 14: 00) BP: 172/97 (05/29/16 14:00)Pulse Ox: 96 (05/29/16 14:00) General: Alert, Oriented x3, Cooperative, No acute distress HEENT: EOMI, Anicteric Sclera Respiratory: Normal - CTA. negative: Rales, Rhonchi Cardiovascular: Regular rate and rhythm, No Gallops,Rubs/Murmurs Gastrointestinal: Distended, Bowel Sounds. negative: Tender, Guarding, Firm Back: Normal. negative: Ecchymosis, CVA Tenderness Extremities: negative: Tenderness, Cyanosis Psych/Mental Status: Appropriate. negative: Confused Skin: Warm,Dry and Intact, No rashes, No breakdown Laboratory/Diagnostics Reviewed: 05/26/16 08:58 05/28/16 06:34 - Assessment and Plan (1) Asthma Acute J45.909 - UNSPECIFIED ASTHMA, UNCOMPLICATED Present on Admission: Yes moderate persistent uncomplicated J45.40 - Moderate persistent asthma, uncomplicated (2) Diverticulitis Acute K57.92 - DVTRCLI OF INTEST, PART UNSP, W/O PERF OR ABSCESS W/O BLEED Present on Admission: Yes (3) Emphysema with chronic bronchitis Acute J44.9 - CHRONIC OBSTRUCTIVE PULMONARY DISEASE, UNSPECIFIED Present on Admission: Yes (4) Hypertension Acute I10 - ESSENTIAL (PRIMARY) HYPERTENSION Present on Admission: Yes essential hypertension I10 - Essential (primary) hypertension Plan: Will need to Continue with IV antibiotics.Concerned that he keeps getting intermittently distended. If this fails to resolve over the next 24-48 hours, he will need to have surgery.
[2016-05-29] MEDS: PIPERACILLIN AND TAZOBACTAM 3.375 GM in D5W 100 ML IV SCH ×2 (15:40→20:23)
[2016-05-29] MEDS: ENOXAPARIN 40 MG/0.4 ML PFS SQ SCH (17:11)
[2016-05-29] MEDS: ONDANSETRON HCL 4 MG/2 ML VIAL IV PRN (20:22)
[2016-05-30] MEDS: Albuterol/Ipratropium Neb 3 ML NEB NEB SCH ×4 (00:47→19:42)
[2016-05-30] MEDS: SODIUM CHLORIDE 0.9% 3 ML FLUSH FLUSH SCH ×2 (04:54→18:04)
[2016-05-30] MEDS: PANTOPRAZOLE 40 MG TAB PO SCH (04:54)
[2016-05-30] MEDS: PIPERACILLIN AND TAZOBACTAM 3.375 GM in D5W 100 ML IV SCH ×4 (04:54→20:59)
[2016-05-30] MEDS: SIMETHICONE 80 MG TAB PO SCH ×8 (04:54→23:05)
[2016-05-30] MEDS: Metronidazole 500 mg/100 ml 500 MG/100 ML RTU IV SCH ×2 (04:54→12:09)
[2016-05-30] MEDS: ONDANSETRON HCL 4 MG/2 ML VIAL IV PRN (08:09)
[2016-05-30] MEDS: MORPHINE 2 MG/ML INJECTION IV PRN (08:10)
[2016-05-30] MEDS ORDERED: FLEET 4.5 OZ ENEMA PR ONE (08:43)
[2016-05-30] MEDS: FLUTICASONE/SALMETEROL 250/50 DISKUS INH SCH ×2 (09:14→19:42)
[2016-05-30] MEDS: Docusate Sodium 100 MG CAP PO SCH ×2 (10:00→20:59)
[2016-05-30] MEDS: MAGNESIUM HYDROXIDE 30 ML BOTTLE PO SCH (10:00)
--- NOTE | 2016-05-30 10:53 | HIMOPRPT ---
SURGEON: DATE OF PROCEDURE: 05/30/16 PREOPERATIVE DIAGNOSES: Cholecystitis and cholelithiasis. POSTOPERATIVE DIAGNOSES: Cholecystitis and cholelithiasis. PROCEDURE: Laparoscopic cholecystectomy with intraoperative cholangiogram. SURGEON: Erick Kiran MD ANESTHESIA: General. COMPLICATIONS: None. ESTIMATED BLOOD LOSS: 30cc OPERATIVE NOTE: The patient was placed supine on the operative table. After induction of general anesthesia and endotracheal intubation, the patient was prepped and draped in the usual fashion. Time-out was taken. The patient was re- identified and the procedure was verified, and was given pre-operative antibiotics. An infraumbilical incision was made and a 5-mm Optiview trocar was placed without difficulties. The abdomen was insufflated with CO2 until a pressure of 15 mm HG was achieved. The camera was introduced and we inspected the abdominal cavity. The liver was smooth without any nodularities or masses. At this point, we placed two 5 mm ports in the right upper quadrant under direct visualization and an 11-mm port in the epigastric region. We were able to place a grasper on the dome, the other on the infundibulum of the gallbladder. The [place] of [place] was dissected using lateral retraction of the infundibulum thus exposing this critical angle between the cystic duct and CBD. The peritoneal attachment around the infundibulum of the gallbladder to the liver was dissected free using electrocautery. Thus giving a partial retrograde dissection. This allowed the visualization of the cystic duct and artery as they entered the gallbladder. Having developed this Critical View of Safety at the triangle of [place] we proceeded with our cholangiogram. A Rucker clamp was placed across the body of the gallbladder, the tip of the catheter was inserted into the infundibulum. We then were able to flush this. Using the C -arm fluoroscopy unit, we performed a cholangiogram. In real time, we saw the passage of contrast throughout the biliary tree, common hepatic, common bile duct, and emptying readily into the duodenum. No filling defects were noted. This was a normal cholangiogram. At this point, the catheter was removed. Clips were placed on the cystic duct and artery and these structures were divided. A PDS loop was placed around the cystic duct stump. We then removed the gallbladder off the liver bed using electrocautery. The liver bed was oozing and we were able to manage this with Surgicel and Bio-glue. The liver bed then remained completely hemostatic. We removed the gallbladder and placed it into a laparoscopic retrieval bag. We irrigated the operative field and suctioned out the irrigation. A 19 Fr. Caleb drain was placed in the GB fossa. We then removed the ports allowing the CO2 to escape. The patient then had the large port site closed at the level of the fascia using #0-Vicryl sutures. The wounds were all irrigated and infiltrated with 0.25% Marcaine. The skin edges were approximated using 4-0 Monocryl and Dermabond. The patient tolerated this well. Sponge, needle, and instrument counts were correct.
[2016-05-30] MEDS: PROBIOTIC BLEND TAB PO SCH ×2 (11:20→18:04)
--- NOTE | 2016-05-30 11:37 | GENMEDPROG ---
Chief Complaint: Diverticulitis with microperforation Subjective Note: Still with significant abdominal pain, was given Fleet enema this morning, so has some liquid with solid next and bowel movement this morning. Not passing gas spontaneously, however. Still distended. Nursing notes that he has gained several lb of fluid in the last several days since admission to the hospital. Currently: Reports: SANTOYO, Sputum, Reflux Sx, Abdominal Pain. Denies: Diarrhea, Nausea and Vomiting, Fever/Chills DVT Prophylaxis: Yes - Physical Examination Vital Signs and I&O: Last Vital Signs Temp 97.8 F 05/30/16 05:25 Pulse 96 05/30/16 05:25 Resp 20 05/30/16 05:25 BP 165/96 05/30/16 05:25 Pulse Ox 94 05/30/16 05:25 Oxygen Pulse Oxygen Saturation 94 O2 Device Room Air Oxygen Flow Rate Fraction of Inspired Oxygen ( FIO2) Intake & Output 05/28/16 05/29/16 05/30/16 05/31/16 06:59 06:59 06:59 06:59 Intake Total 3224 1927 2160 60 Output Total 300 Balance 3224 1927 2160 -240 Patient's weight 76.204 kg 80.739 kg 82.1 kg General: Alert, Oriented x3, Cooperative, No acute distress HEENT: EOMI, Anicteric Sclera Respiratory: Normal - CTA. negative: Rales, Rhonchi Cardiovascular: Regular rate and rhythm, No Gallops,Rubs/Murmurs Extremities/Musculoskeletal: Edema. negative: Tenderness, Cyanosis Skin: Warm,Dry and Intact, No rashes, No breakdown Psych/Mental Status: Appropriate. negative: Confused - Assessment (1) Abscess of sigmoid colon due to diverticulitis Acute K57.20 - DVTRCLI OF LG INT W PERFORATION AND ABSCESS W/O BLEEDING Comment/Plan: Continue IV fluids, IV antibiotics Levaquin and Flagyl. Repeated CT scan showed areas of improvement in his diverticulitis. Being followed by General surgery. Continue otherwise supportive care. (2) Abdominal pain Acute R10.9 - UNSPECIFIED ABDOMINAL PAIN Qualifiers: Abdominal location: left lower quadrant Qualified Code(s): R10.32 - Left lower quadrant pain Comment/Plan: Continue narcotic analgesics on as needed basis. (3) Asthma Acute J45.909 - UNSPECIFIED ASTHMA, UNCOMPLICATED Qualifiers: Asthma severity: moderate persistent Asthma complication type: uncomplicated Qualified Code(s): J45.40 - Moderate persistent asthma, uncomplicated Comment/Plan: Stable, no wheezes on exam. Continue p.r.n. nebulizers. (4) Hypercholesterolemia Acute E78.00 - PURE HYPERCHOLESTEROLEMIA, UNSPECIFIED Comment/Plan: Patient states he used to be on medication but stop taking it because he could not afford it. Will start him on something that is on the 4 dollar list at discharge. (5) Hypertension Acute I10 - ESSENTIAL (PRIMARY) HYPERTENSION Qualifiers: Hypertension type: essential hypertension Qualified Code(s): I10 - Essential (primary) hypertension Comment/Plan: Blood pressure currently acceptable. (6) GERD (gastroesophageal reflux disease) Chronic K21.9 - GASTRO-ESOPHAGEAL REFLUX DISEASE WITHOUT ESOPHAGITIS Qualifiers: Esophagitis presence: without esophagitis Qualified Code(s): K21.9 - Gastro -esophageal reflux disease without esophagitis Comment/Plan: Continue PPI - Plan Continue present care, discussed with surgery today. Will discontinue IV fluids and given some Lasix today. Anticipate that he will likely have surgery Saturday, plan on checking abdominal imaging tomorrow morning to check on progress.
[2016-05-30] MEDS ORDERED: FUROSEMIDE 20 MG/2 ML VIAL ONE (12:17)
[2016-05-30] MEDS: FUROSEMIDE 20 MG/2 ML VIAL IV SCH ×2 (12:19→15:27)
--- NOTE | 2016-05-30 12:57 | PCM.SURGRO ---
- Subjective Patient: Reports: No new complaints, Feels better, Bowel Movement, Afebrile. Denies: Nausea, Vomiting, Shortness of breath - Objective / Physical Exam Vital Signs: Temperature: 97.8 F (05/30/16 05:25) HR: 96 (05/30/16 05:25)RR: 20 (05/30/16 05: 25) BP: 165/96 (05/30/16 05:25)Pulse Ox: 94 (05/30/16 05:25) General: Alert, Oriented x3, Cooperative, No acute distress HEENT: EOMI, Anicteric Sclera Respiratory: Normal - CTA. negative: Rales, Rhonchi Cardiovascular: Regular rate and rhythm, No Gallops,Rubs/Murmurs Gastrointestinal: Bowel Sounds. negative: Distended, Tender, Guarding Extremities: Normal pulses. negative: Tenderness, Swelling Psych/Mental Status: Normal Affect, Cooperative. negative: Agitated Neurological: Normal speech. negative: Drowsy, Somnolent Skin: Warm,Dry and Intact, No rashes, No breakdown Laboratory/Diagnostics Reviewed: 05/26/16 08:58 05/28/16 06:34 - Assessment and Plan (1) Asthma Acute J45.909 - UNSPECIFIED ASTHMA, UNCOMPLICATED Present on Admission: Yes moderate persistent uncomplicated J45.40 - Moderate persistent asthma, uncomplicated (2) Diverticulitis Acute K57.92 - DVTRCLI OF INTEST, PART UNSP, W/O PERF OR ABSCESS W/O BLEED Present on Admission: Yes (3) Emphysema with chronic bronchitis Acute J44.9 - CHRONIC OBSTRUCTIVE PULMONARY DISEASE, UNSPECIFIED Present on Admission: Yes (4) Hypertension Acute I10 - ESSENTIAL (PRIMARY) HYPERTENSION Present on Admission: Yes essential hypertension I10 - Essential (primary) hypertension Plan: Patient much better now that he has had BMs. Try to advance to full liquids. Cont IV antibiotics. Check abdominal XR in AM.
[2016-05-30] MEDS: OXYCODONE HCL 5 MG TABLET PO PRN ×3 (13:24→22:05)
[2016-05-30] MEDS: Levofloxacin 750 mg/150 ml D5W 750 MG/150 ML RTU IV SCH (13:25)
[2016-05-30] MEDS ORDERED: Medication Special Instructions SCH (14:00)
[2016-05-30] MEDS: ENOXAPARIN 40 MG/0.4 ML PFS SQ SCH (18:04)
[2016-05-31] MEDS: Albuterol/Ipratropium Neb 3 ML NEB NEB SCH ×4 (01:59→19:20)
[2016-05-31] MEDS ORDERED: FLUTICASONE/SALMETEROL 250/50 DISKUS INH SCH (03:00)
[2016-05-31] MEDS: SIMETHICONE 80 MG TAB PO SCH ×8 (03:08→21:07)
[2016-05-31] MEDS: OXYCODONE HCL 5 MG TABLET PO PRN ×5 (03:20→22:34)
[2016-05-31] MEDS: PIPERACILLIN AND TAZOBACTAM 3.375 GM in D5W 100 ML IV SCH ×4 (05:09→21:07)
[2016-05-31] MEDS: PANTOPRAZOLE 40 MG TAB PO SCH (05:09)
[2016-05-31] MEDS: SODIUM CHLORIDE 0.9% 3 ML FLUSH FLUSH SCH ×2 (05:39→18:25)
[2016-05-31 06:49] LABS: AUTOMATED BASOPHIL 1.2 % (0-2); AUTOMATED MONOCYTE 8.4 % (3-10); AUTOMATED NEUTROPHIL 62.4 % (45-76); MPV 7.3 fL (7.4-10.4)
[2016-05-31 07:12] LABS: BLOOD UREA NITROGEN 7 MG/DL (9-20); CALCIUM 8.5 MG/DL (8.4-10.2); CALCULATED OSMOLALITY 256 MOs/Kg (270-290); CHLORIDE 94 mEq/L (98-107); GLUCOSE 134 MG/DL (70-99); SODIUM LEVEL 133 mEq/L (137-146)
--- NOTE | 2016-05-31 08:04 | DIRPT ---
CLINICAL DATA: Abdominal distention. EXAM: ABDOMEN - 2 VIEW COMPARISON: CT 05/27/2016. FINDINGS: Persistent prominent loops of small and large bowel are noted most consistent adynamic ileus. Findings have improved slightly from prior exam . Continued follow-up exam suggested to exclude developing bowel obstruction. No free air. No acute bony abnormality. IMPRESSION: Persistent prominent loops of small and large bowel are noted consistent with adynamic ileus. Findings have improved slightly from prior exam . Continued follow-up exam suggested to exclude developing bowel obstruction. No free air. Electronically Signed By: Kendall Pepe On: 05/31/2016 08:01
[2016-05-31] MEDS: MAGNESIUM HYDROXIDE 30 ML BOTTLE PO SCH (08:27)
[2016-05-31] MEDS: FUROSEMIDE 20 MG/2 ML VIAL IV SCH ×2 (08:28→17:04)
[2016-05-31] MEDS: Docusate Sodium 100 MG CAP PO SCH ×2 (08:28→21:07)
[2016-05-31] MEDS: MORPHINE 2 MG/ML INJECTION IV PRN (08:30)
[2016-05-31] MEDS: FLUTICASONE/SALMETEROL 250/50 DISKUS INH SCH ×2 (09:07→19:48)
[2016-05-31] MEDS: Levofloxacin 750 mg/150 ml D5W 750 MG/150 ML RTU IV SCH ×2 (09:21→10:47)
[2016-05-31] MEDS ORDERED: NS 500 ML IV ONE (09:47)
--- NOTE | 2016-05-31 11:02 | GENMEDPROG ---
Chief Complaint: Diverticulitis, ileus Subjective Note: No acute events, still with abdominal pain, very little bowel movements. Currently: Reports: SANTOYO, Sputum, Reflux Sx, Abdominal Pain. Denies: Diarrhea, Nausea and Vomiting, Fever/Chills DVT Prophylaxis: Yes - Physical Examination Vital Signs and I&O: Last Vital Signs Temp 98.0 F 05/31/16 06:24 Pulse 91 05/31/16 06:24 Resp 18 05/31/16 06:24 BP 112/68 05/31/16 06:24 Pulse Ox 93 05/31/16 06:24 Oxygen Pulse Oxygen Saturation 93 O2 Device Room Air Oxygen Flow Rate Fraction of Inspired Oxygen ( FIO2) Intake & Output 05/29/16 05/30/16 05/31/16 06/01/16 06:59 06:59 06:59 06:59 Intake Total 1926 2160 603 120 Output Total 300 200 Balance 1926 2160 303 -80 Patient's weight 80.739 kg 82.1 kg 78.075 kg General: Alert, Oriented x3, Cooperative, No acute distress HEENT: EOMI, Anicteric Sclera Respiratory: Normal - CTA. negative: Rales, Rhonchi Cardiovascular: Regular rate and rhythm, No Gallops,Rubs/Murmurs Extremities/Musculoskeletal: Normal pulses. negative: Tenderness, Swelling Skin: Warm,Dry and Intact, No rashes, No breakdown Psych/Mental Status: Normal Affect, Cooperative. negative: Agitated - Assessment (1) Abscess of sigmoid colon due to diverticulitis Acute K57.20 - DVTRCLI OF LG INT W PERFORATION AND ABSCESS W/O BLEEDING Comment/Plan: Continue IV fluids, IV antibiotics Levaquin and Flagyl. Repeated CT scan showed areas of improvement is diverticulitis, but x-ray this morning shows continued ileus. Discussed with General surgery, who plans on taking him to the operating room tomorrow morning. (2) Abdominal pain Acute R10.9 - UNSPECIFIED ABDOMINAL PAIN Qualifiers: Abdominal location: left lower quadrant Qualified Code(s): R10.32 - Left lower quadrant pain Comment/Plan: Continue narcotic analgesics on as needed basis. (3) Asthma Acute J45.909 - UNSPECIFIED ASTHMA, UNCOMPLICATED Qualifiers: Asthma severity: moderate persistent Asthma complication type: uncomplicated Qualified Code(s): J45.40 - Moderate persistent asthma, uncomplicated Comment/Plan: Stable, no wheezes on exam. Continue p.r.n. nebulizers. (4) Hypercholesterolemia Acute E78.00 - PURE HYPERCHOLESTEROLEMIA, UNSPECIFIED Comment/Plan: Patient states he used to be on medication but stop taking it because he could not afford it. Will start him on something that is on the 4 dollar list at discharge. (5) Hypertension Acute I10 - ESSENTIAL (PRIMARY) HYPERTENSION Qualifiers: Hypertension type: essential hypertension Qualified Code(s): I10 - Essential (primary) hypertension Comment/Plan: Blood pressure currently acceptable. (6) GERD (gastroesophageal reflux disease) Chronic K21.9 - GASTRO-ESOPHAGEAL REFLUX DISEASE WITHOUT ESOPHAGITIS Qualifiers: Esophagitis presence: without esophagitis Qualified Code(s): K21.9 - Gastro -esophageal reflux disease without esophagitis Comment/Plan: Continue PPI
[2016-05-31] MEDS: PROBIOTIC BLEND TAB PO SCH ×2 (12:56→17:05)
[2016-06-01] MEDS: SIMETHICONE 80 MG TAB PO SCH ×7 (00:46→17:13)
[2016-06-01] MEDS: Albuterol/Ipratropium Neb 3 ML NEB NEB SCH ×4 (01:34→21:14)
[2016-06-01] MEDS: PIPERACILLIN AND TAZOBACTAM 3.375 GM in D5W 100 ML IV SCH ×3 (05:11→16:31)
[2016-06-01] MEDS: OXYCODONE HCL 5 MG TABLET PO PRN ×2 (05:11→09:59)
[2016-06-01] MEDS: PANTOPRAZOLE 40 MG TAB PO SCH (05:11)
[2016-06-01] MEDS: SODIUM CHLORIDE 0.9% 3 ML FLUSH FLUSH SCH ×2 (06:21→17:14)
[2016-06-01] MEDS ORDERED: CHLORHEXIDINE (HIBICLENS) 4 OZ BOTTLE TOP ONE (07:30)
[2016-06-01] MEDS: FLUTICASONE/SALMETEROL 250/50 DISKUS INH SCH ×2 (07:31→21:13)
[2016-06-01] MEDS: FUROSEMIDE 20 MG/2 ML VIAL IV SCH ×2 (08:24→15:56)
[2016-06-01] MEDS: MAGNESIUM HYDROXIDE 30 ML BOTTLE PO SCH (08:26)
[2016-06-01] MEDS: Docusate Sodium 100 MG CAP PO SCH (08:26)
--- NOTE | 2016-06-01 09:23 | GENMEDPROG ---
Chief Complaint: Diverticulitis with microperforation Subjective Note: Doing better, improved pain. Still having some bowel movements. Feels that his stomach is less distended. Notes Reviewed: Yes Events from last night noted and discussed with Clinical Staff Current Medication List: Reviewed Currently: Reports: SANTOYO, Sputum, Reflux Sx, Abdominal Pain. Denies: Diarrhea, Nausea and Vomiting, Fever/Chills DVT Prophylaxis: Yes - Physical Examination Vital Signs and I&O: Last Vital Signs Temp 97.8 F 06/01/16 06:00 Pulse 87 06/01/16 06:00 Resp 18 06/01/16 06:00 BP 113/75 06/01/16 06:00 Pulse Ox 97 06/01/16 06:00 Oxygen Pulse Oxygen Saturation 97 O2 Device Room Air Oxygen Flow Rate Fraction of Inspired Oxygen ( FIO2) Intake & Output 05/30/16 05/31/16 06/01/16 06/02/16 06:59 06:59 06:59 06:59 Intake Total 2160 603 1800 Output Total 300 2600 550 Balance 2160 303 -800 -550 Patient's weight 82.1 kg 78.075 kg 74.979 kg General: Alert, Oriented x3, Cooperative, No acute distress HEENT: EOMI, Anicteric Sclera Respiratory: Normal - CTA. negative: Rales, Rhonchi Cardiovascular: Regular rate and rhythm, No Gallops,Rubs/Murmurs GI: Soft, Obese, Other (Much less distended and tight than the last couple of days.) Extremities/Musculoskeletal: Normal pulses. negative: Tenderness, Swelling Skin: Warm,Dry and Intact, No rashes, No breakdown Psych/Mental Status: Normal Affect, Cooperative. negative: Agitated Lab/DI/Studies Reviewed: Laboratory Tests 05/31/16 05/31/16 06:05 06:05 WBC 9.1 Hgb 12.6 L Potassium 4.6 BUN 7 L Creatinine 1.00 - Assessment (1) Abscess of sigmoid colon due to diverticulitis Acute K57.20 - DVTRCLI OF LG INT W PERFORATION AND ABSCESS W/O BLEEDING Comment/Plan: Continue IV fluids, IV antibiotics Levaquin and Flagyl. Repeated CT scan showed areas of improvement is diverticulitis, but patient was not improving and follow-up x-ray a couple of days ago showed continued ileus. Discussed with surgery, who plans operative resolution later this afternoon. However, this morning the patient abdominal exam is much improved as is his pain. As such, I have ordered a stat abdominal x-ray. Will discuss findings with Dr. Kiran. (2) Abdominal pain Acute R10.9 - UNSPECIFIED ABDOMINAL PAIN Qualifiers: Abdominal location: left lower quadrant Qualified Code(s): R10.32 - Left lower quadrant pain Comment/Plan: Continue narcotic analgesics on as needed basis. (3) Asthma Acute J45.909 - UNSPECIFIED ASTHMA, UNCOMPLICATED Qualifiers: Asthma severity: moderate persistent Asthma complication type: uncomplicated Qualified Code(s): J45.40 - Moderate persistent asthma, uncomplicated Comment/Plan: Stable, no wheezes on exam. Continue p.r.n. nebulizers. (4) Hypercholesterolemia Acute E78.00 - PURE HYPERCHOLESTEROLEMIA, UNSPECIFIED Comment/Plan: Patient states he used to be on medication but stop taking it because he could not afford it. Will start him on something that is on the 4 dollar list at discharge. (5) Hypertension Acute I10 - ESSENTIAL (PRIMARY) HYPERTENSION Qualifiers: Hypertension type: essential hypertension Qualified Code(s): I10 - Essential (primary) hypertension Comment/Plan: Blood pressure currently acceptable. (6) GERD (gastroesophageal reflux disease) Chronic K21.9 - GASTRO-ESOPHAGEAL REFLUX DISEASE WITHOUT ESOPHAGITIS Qualifiers: Esophagitis presence: without esophagitis Qualified Code(s): K21.9 - Gastro -esophageal reflux disease without esophagitis Comment/Plan: Continue PPI Case Care Discussed with: Patient, Consultants, Nursing Staff Total Time: 38
--- NOTE | 2016-06-01 09:54 | DIRPT ---
CLINICAL DATA: Ileus EXAM: ABDOMEN - 1 VIEW COMPARISON: May 31, 2016 FINDINGS: There is no longer appreciable bowel dilatation. Currently the bowel gas pattern appears within normal limits. No air-fluid levels seen on this supine examination. No free air. There are vascular calcifications in the pelvis bilaterally. IMPRESSION: Bowel gas pattern now within normal limits. Foci of vascular calcification in the pelvis. No free air is demonstrable on this supine examination. Electronically Signed By: Walt Rosenthal III, M.D. On: 06/01/2016 09:51
[2016-06-01] MEDS ORDERED: MIDAZOLAM 2 MG/2 ML VIAL IV ONE (10:00)
[2016-06-01] MEDS ORDERED: PROPOFOL 200 MG/20 ML VIAL IV ONE (10:00)
[2016-06-01] MEDS ORDERED: ROCURONIUM 50 MG/5 ML VIAL IV ONE (10:00)
[2016-06-01] MEDS ORDERED: FENTANYL 250 MCG/5 ML VIAL IV ONE (10:00)
[2016-06-01] MEDS ORDERED: ALBUMIN IV ONE (10:00)
[2016-06-01] MEDS ORDERED: PHENYLEPHRINE 10 MG/ML VIAL IC ONE (10:00)
[2016-06-01] MEDS ORDERED: LIDOCAINE 4% 5 ML AMPULE NEB ONE (10:00)
[2016-06-01] MEDS ORDERED: DEXAMETHASONE 4 MG/ML VIAL IV ONE (10:00)
[2016-06-01] MEDS ORDERED: SUCCINYLCHOLINE 20 MG/1 ML INJ 10 ML MDV IV ONE (10:00)
[2016-06-01] MEDS ORDERED: HYDROmorphone 2 MG/ML VIAL IM ONE (10:00)
[2016-06-01] MEDS ORDERED: GLYCOPYRROLATE 1 MG VIAL IM ONE (10:00)
[2016-06-01] MEDS ORDERED: ONDANSETRON HCL 4 MG/2 ML VIAL IV ONE (10:00)
[2016-06-01] MEDS ORDERED: NEOSTIGMINE 1 MG/1 ML (1:1000) INJ 10 ML MDV IM ONE (10:00)
[2016-06-01] MEDS: Levofloxacin 750 mg/150 ml D5W 750 MG/150 ML RTU IV SCH (11:02)
[2016-06-01] MEDS: PROBIOTIC BLEND TAB PO SCH ×2 (11:40→17:13)
[2016-06-01] MEDS ORDERED: FENTANYL 100 MCG/2 ML VIAL IV PRN ×2 (14:11)
[2016-06-01] MEDS ORDERED: HYDROmorphone 1 MG INJECTION IV PRN ×2 (14:11)
[2016-06-01] MEDS ORDERED: LABETALOL 20 MG/4 ML SYRINGE IV PRN (14:11)
[2016-06-01] MEDS ORDERED: hydrALAZINE 20 MG/ML VIAL IV PRN (14:11)
[2016-06-01] MEDS ORDERED: MEPERIDINE 25 MG/ML TUBEX IV PRN (14:11)
[2016-06-01] MEDS ORDERED: ONDANSETRON HCL 4 MG ODT TAB PO PRN (14:11)
[2016-06-01] MEDS ORDERED: ONDANSETRON HCL 4 MG/2 ML VIAL IV PRN (14:11)
--- NOTE | 2016-06-01 15:17 | HIM.ANES ---
Anesthesia Evaluation & Plan - Focused Review of Systems Cardiac History: Yes: Hx Hypertension, Hx Cardiac Disorders, Hx Abnormal Cholesterol/Hyperlipidemia Respiratory: Yes: Hx Asthma, Hx Emphysema, Hx Chronic Obstructive Pulmonary Disease (COPD) Gastrointestinal: No: Hx Obstructive Bowel Psychological: Yes Hx Anxiety, No Hx Depression Blood/Autoimmune: No: Hx Blood Transfusions Smoking Status: Former smoker Past Social History: Denies: Alcohol Use, Substance Use Disorder Hx Stress Test (date): No Hx Echocardiogram (date): No Hx Chest Xray (date): No - Focused Physical Exam NPO since: Midnight Mallampati: Class II Thyromental Distance: Greater than 3 Neck: Full Range of Motion Dental: Normal - no significant findings Cardiovascular/Chest: Normal Respiratory: Lungs clear Other: Problem List Problem Status Onset Abdominal pain Acute Abscess of sigmoid colon due to diverticulitis Acute Asthma Acute Dehydration Acute Diverticulitis Acute Emphysema with chronic bronchitis Acute Hypercholesterolemia Acute Hypertension Acute GERD (gastroesophageal reflux disease) Chronic History of depression Chronic PT/PTT/INR/ PT 10.2 SEC (9.2-11.2) 05/23/16 04:30 INR 1.0 05/23/16 04:30 CBC/BMP/Other 05/31/16 06:05 05/31/16 06:05 Allergies Allergy/AdvReac Type Severity Reaction Status Date / Time No Known Allergies Allergy Verified 05/23/16 04:48 Home Medications Medication Instructions Recorded Last Taken Type Fluticasone/Salmeterol [Advair 1 puff INH .BID SEE COMMENTS 03/12/16 1 Year Ago History 250-50] Albuterol Sulfate MDI [Proventil 2 puff INH Q4H PRN 05/23/16 05/23/16 History HFA] Albuterol Sulfate [Proventil, 2.5 mg NEB Q4H PRN 05/23/16 Unknown History Ventolin] Nebulizer [Erapid Nebulizer] 1 each MC .UNKNOWN 05/23/16 Unknown History See Comments About Past Meds 0 mg PO .SEE COMMENTS 05/23/16 05/23/16 History Height and Weight Patient's height 5 ft 4 in Patient's weight 74.979 kg Weight (Calculated Kilograms) 74.979 BMI 29.5 Vital Signs Temperature 97.8 F 06/01/16 13:22 Pulse Rate 87 06/01/16 13:22 Respiratory Rate 18 06/01/16 13:22 Blood Pressure 113/75 06/01/16 13:22 Pulse Oxygen Saturation 97 06/01/16 13:22 - Anesthetic Plan Anesthesia Type: General ASA Class: 2 -: I have examined this patient and reviewed the medical record. The patient has been assessed prior to anesthesia. Risks and benefits of anesthesia and anesthetic technique options have been discussed and all questions answered. The patient accepts the risk and desires me to proceed with the planned anesthetic.
[2016-06-01] MEDS: ENOXAPARIN 40 MG/0.4 ML PFS SQ SCH (17:13)
[2016-06-01] MEDS ORDERED: FENTANYL 100 MCG/2 ML VIAL ONE (19:58)
[2016-06-01] MEDS ORDERED: Acetaminophen, Intravenous 1,000 MG/100 ML IVBOT IV ONE (20:00)
[2016-06-01] MEDS ORDERED: Pharmacy Discontinue All Previous Acetaminophen Orders SCH (20:00)
--- NOTE | 2016-06-01 20:03 | SC.ANESPOS ---
Post-Anesthesia Note LOC: Fully Awake Post-Anesthesia Assessment: Awake, Returned to Baseline, Hemodynamically Stable , Pain Control Adequate Phase I & II Recovery Complete: Yes Apparent Anesthesia Complication: No : N - Vital Signs Blood Pressure: 177/85 Pulse: 101 Resp Rate: 16 O2 Sat: 96 Temp: 97.7 F
--- NOTE | 2016-06-01 20:03 | HIM.ANESP ---
Procedure Note DATE OF PROCEDURE: 06/01/16 PREOPERATIVE DIAGNOSIS: [Poor Venous Access]. POSTOPERATIVE DIAGNOSIS: [Same] PROCEDURE: Insertion of a right internal jugular [16 cm triple-lumen venous access catheter under ultrasound guided localization of the vein. PERFORMING PROVIDER: Gary Dodd MD LOCATION: OR 2 STERILE BARRIERS: Cap, mask, sterile gown, sterile gloves, sterile drape used. SKIN ANTISEPTIC: Chlorhexidine ANESTHESIA: Local with 1% Xylocaine COMPLICATIONS: None, chest x-ray is pending. SPECIMENS: None PACKINGS AND DRAINS: None. BLOOD LOSS: [0 cubic centimeters]. OPERATIVE FINDINGS AND TECHNIQUE: With consent the patient was seen at bedside [ ]. Risk, benefits and alternatives of the procedure were explained. Informed consent was obtained and surgical site confirmed with patient and chart. Time out was performed. Pulse oximetry, EKG and BP monitoring were established. The patient is placed in Trendelenburg position. The [right, left] neck and right subclavian areas were prepped and draped in the usual fashion. Ultrasound interrogation of the neck revealed a widely patent internal jugular vein in its normal anatomic location lateral to the carotid artery. Area of skin overlying the right internal jugular vein was injected with 1% Xylocaine. Under ultrasound guidance the [right, left] internal jugular vein was penetrated quite easily. Guidewire was threaded and met no resistance. Skin incision was made in the tract was dilated.A [16,20]cm triple-lumen venous access catheter was then placed over the guidewire. All 3 ports of the catheter had excellent blood return and easy flush. The catheter was sewn with 3-0 silk suture. Dressings were applied. Chest x-ray is pending.
--- NOTE | 2016-06-01 20:12 | DIRPT ---
CLINICAL DATA: Central line placement. Initial encounter. EXAM: CHEST 1 VIEW COMPARISON: Chest radiograph and CTA of the chest performed 04/07/2016 FINDINGS: A right IJ line is noted ending about the mid SVC. The lungs are well-aerated. Vascular congestion is noted. Mildly increased interstitial markings may reflect minimal interstitial edema. Bibasilar airspace opacities likely reflect atelectasis. No pleural effusion or pneumothorax is seen. The cardiomediastinal silhouette is within normal limits. No acute osseous abnormalities are seen. IMPRESSION: 1. Right IJ line noted ending about the mid SVC. 2. Vascular congestion noted. Mildly increased interstitial markings may reflect minimal interstitial edema. Bibasilar airspace opacities likely reflect atelectasis. Electronically Signed By: Donny Cano M.D. On: 06/01/2016 20:09
--- NOTE | 2016-06-01 20:12 | HIMOPRPT ---
PROCEDURE: DATE OF PROCEDURE: 06/01/16 PREOPERATIVE DIAGNOSES: Diverticulitis with perforation and obstruction. POSTOPERATIVE DIAGNOSES: same PROCEDURES: Mcpherson's procedure. SURGEON: Erick Kiran MD ANESTHESIA: GET COMPLICATIONS: None. ESTIMATED BLOOD LOSS: 100cc OPERATIVE NOTE: Patient was admitted with diverticulitis with contained perforation. He was started nancy IV antibiotics and seemed to improve but remained distended. He never seemed to completely regain bowel function ad was brought to the OR. He was placed supine on the OR table then placed in a semi-lithotomy position. Once prepped and draped a lower midline incision was made. We then entered the abdominal cavity and found the sigmoid to be matted and severely inflamed. I was able to mobilize the left and sigmoid colon the sigmoid was divided t its junction with the descending colon and again at the rectum. This was done using linear staplers. The mesentery was divided between clamps and the vascular pedicles were suture ligated. The specimen was removed the left and right ureters were easily visualized and preserved throughout the entire procedure. The abdominal cavity was repeatedly irrigated with NS. A drain was left in the pelvis and brought out in the RLQ. Sepra film was placed in the pelvis. An ostomy site was created and the colon was delivered. The midline was closed at the level of the fascia with #1 PDS loops. The subcutaneous tissue was irrigated then packed with fredi. The ostomy was matured with vicryl sutures. An appliance was placed. Sponge, needle and instrument counts were correct.
[2016-06-01] MEDS: Acetaminophen, Intravenous 1,000 MG/100 ML IVBOT IV SCH (21:08)
[2016-06-01] MEDS: HYDROmorphone 50 ML IV PRN (21:40)
[2016-06-02] MEDS: SIMETHICONE 80 MG TAB PO SCH ×10 (00:09→23:25)
[2016-06-02] MEDS: PIPERACILLIN AND TAZOBACTAM 3.375 GM in D5W 100 ML IV SCH ×5 (00:09→22:51)
[2016-06-02] MEDS: Docusate Sodium 100 MG CAP PO SCH ×3 (00:09→20:11)
[2016-06-02] MEDS: Albuterol/Ipratropium Neb 3 ML NEB NEB SCH ×4 (01:05→18:55)
[2016-06-02] MEDS: Acetaminophen, Intravenous 1,000 MG/100 ML IVBOT IV SCH ×4 (02:47→20:14)
[2016-06-02] MEDS: HYDROmorphone 50 ML IV PRN ×3 (03:10→20:08)
[2016-06-02] MEDS: LR 1,000 ML IV SCH ×4 (05:06→23:24)
[2016-06-02] MEDS: SODIUM CHLORIDE 0.9% 3 ML FLUSH FLUSH SCH ×2 (05:53→17:51)
[2016-06-02] MEDS: PANTOPRAZOLE 40 MG TAB PO SCH (05:53)
[2016-06-02] MEDS: FLUTICASONE/SALMETEROL 250/50 DISKUS INH SCH ×2 (09:28→21:19)
[2016-06-02] MEDS: FUROSEMIDE 20 MG/2 ML VIAL IV SCH ×2 (10:04→17:45)
[2016-06-02] MEDS: MAGNESIUM HYDROXIDE 30 ML BOTTLE PO SCH (10:26)
[2016-06-02] MEDS: Levofloxacin 750 mg/150 ml D5W 750 MG/150 ML RTU IV SCH (11:00)
--- NOTE | 2016-06-02 11:00 | GENMEDPROG ---
Chief Complaint: Status post surgery for perforated diverticulitis Subjective Note: Doing well, abdomen is sore but overall feels better than the day prior. No nausea. Currently: Reports: SANTOYO, Sputum, Reflux Sx, Abdominal Pain. Denies: Diarrhea, Nausea and Vomiting, Fever/Chills DVT Prophylaxis: Yes - Physical Examination Vital Signs and I&O: Last Vital Signs Temp 97.9 F 06/02/16 10:34 Pulse 100 06/02/16 10:34 Resp 18 06/02/16 10:34 BP 166/83 06/02/16 10:34 Pulse Ox 94 06/02/16 10:34 Oxygen Pulse Oxygen Saturation 94 O2 Device Nasal Cannula Oxygen Flow Rate 1 Fraction of Inspired Oxygen ( FIO2) Intake & Output 05/31/16 06/01/16 06/02/16 06/03/16 06:59 06:59 06:59 06:59 Intake Total 603 1800 1744 Output Total 300 2600 1600 0 Balance 303 -800 144 0 Patient's weight 78.075 kg 74.979 kg General: Alert, Oriented x3, Cooperative, No acute distress HEENT: EOMI, Anicteric Sclera Respiratory: Normal - CTA. negative: Rales, Rhonchi Cardiovascular: Regular rate and rhythm, No Gallops,Rubs/Murmurs GI: Soft, Obese, Other (Much less distended today, he has left lower quadrant colostomy which looks healthy, he also has a right lower quadrant drain in place.) Extremities/Musculoskeletal: Normal pulses. negative: Tenderness, Swelling Skin: Warm,Dry and Intact, No rashes, No breakdown Psych/Mental Status: Normal Affect, Cooperative. negative: Agitated Lab/DI/Studies Reviewed: Laboratory Tests 05/31/16 05/31/16 06:05 06:05 WBC 9.1 Hgb 12.6 L Hct 37.2 L Potassium 4.6 BUN 7 L Creatinine 1.00 - Assessment (1) Abscess of sigmoid colon due to diverticulitis Acute K57.20 - DVTRCLI OF LG INT W PERFORATION AND ABSCESS W/O BLEEDING Comment/Plan: Continue IV fluids, IV antibiotics Levaquin and Flagyl. Now status post surgical colostomy creation. Doing well await bowel function returned. (2) Abdominal pain Acute R10.9 - UNSPECIFIED ABDOMINAL PAIN Qualifiers: Abdominal location: left lower quadrant Qualified Code(s): R10.32 - Left lower quadrant pain Comment/Plan: Continue narcotic analgesics on as needed basis. (3) Asthma Acute J45.909 - UNSPECIFIED ASTHMA, UNCOMPLICATED Qualifiers: Asthma severity: moderate persistent Asthma complication type: uncomplicated Qualified Code(s): J45.40 - Moderate persistent asthma, uncomplicated Comment/Plan: Stable, no wheezes on exam. Continue p.r.n. nebulizers. (4) Hypercholesterolemia Acute E78.00 - PURE HYPERCHOLESTEROLEMIA, UNSPECIFIED Comment/Plan: Patient states he used to be on medication but stop taking it because he could not afford it. Will start him on something that is on the 4 dollar list at discharge. (5) Hypertension Acute I10 - ESSENTIAL (PRIMARY) HYPERTENSION Qualifiers: Hypertension type: essential hypertension Qualified Code(s): I10 - Essential (primary) hypertension Comment/Plan: Blood pressure currently acceptable. (6) GERD (gastroesophageal reflux disease) Chronic K21.9 - GASTRO-ESOPHAGEAL REFLUX DISEASE WITHOUT ESOPHAGITIS Qualifiers: Esophagitis presence: without esophagitis Qualified Code(s): K21.9 - Gastro -esophageal reflux disease without esophagitis Comment/Plan: Continue PPI
[2016-06-02] MEDS: PROBIOTIC BLEND TAB PO SCH ×2 (12:22→17:44)
--- NOTE | 2016-06-02 13:53 | PCM.SURGRO ---
- Subjective Patient: Reports: Feels better, Still having pain, No Bowel Movement - Objective / Physical Exam Vital Signs: Temperature: 97.9 F (06/02/16 10:34) HR: 100 (06/02/16 10:34)RR: 18 (06/02/16 10 :34) BP: 166/83 (06/02/16 10:34)Pulse Ox: 94 (06/02/16 10:34) General: Alert, Oriented x3, Cooperative HEENT: Normal, EOMI, Anicteric Sclera Respiratory: Normal - CTA. negative: Diminished, Rhonchi, Wheezes Cardiovascular: Regular rate and rhythm, No Gallops,Rubs/Murmurs Gastrointestinal: Soft, Tender. negative: Distended, Guarding Surgical wound site: Clean/Dry, Intact Laboratory/Diagnostics Reviewed: 05/31/16 06:05 05/31/16 06:05 - Assessment and Plan (1) Asthma Acute J45.909 - UNSPECIFIED ASTHMA, UNCOMPLICATED Present on Admission: Yes moderate persistent uncomplicated J45.40 - Moderate persistent asthma, uncomplicated (2) Diverticulitis Acute K57.92 - DVTRCLI OF INTEST, PART UNSP, W/O PERF OR ABSCESS W/O BLEED Present on Admission: Yes (3) Emphysema with chronic bronchitis Acute J44.9 - CHRONIC OBSTRUCTIVE PULMONARY DISEASE, UNSPECIFIED Present on Admission: Yes (4) Hypertension Acute I10 - ESSENTIAL (PRIMARY) HYPERTENSION Present on Admission: Yes essential hypertension I10 - Essential (primary) hypertension Plan: Patient is stable. Increase activity today. Start ostomy care teaching.
[2016-06-02] MEDS: ENOXAPARIN 40 MG/0.4 ML PFS SQ SCH (17:45)
[2016-06-03] MEDS: Albuterol/Ipratropium Neb 3 ML NEB NEB SCH ×4 (00:55→19:20)
[2016-06-03] MEDS: HYDROmorphone 50 ML IV PRN ×3 (03:57→19:57)
[2016-06-03] MEDS: SODIUM CHLORIDE 0.9% 3 ML FLUSH FLUSH SCH ×2 (05:17→15:58)
[2016-06-03] MEDS: PANTOPRAZOLE 40 MG TAB PO SCH (05:17)
[2016-06-03] MEDS: ACETAMINOPHEN 325 MG/TAB TABLET PO SCH ×3 (05:17→23:33)
[2016-06-03] MEDS: PIPERACILLIN AND TAZOBACTAM 3.375 GM in D5W 100 ML IV SCH ×4 (05:17→23:31)
[2016-06-03] MEDS: SIMETHICONE 80 MG TAB PO SCH ×8 (05:17→23:33)
[2016-06-03 06:14] LABS: AUTOMATED EOSINOPHIL 4.4 % (0-5); AUTOMATED LYMPH 15.8 % (17-44); AUTOMATED MONOCYTE 6.3 % (3-10); AUTOMATED NEUTROPHIL 72.5 % (45-76); MPV 7.8 fL (7.4-10.4)
[2016-06-03 06:30] LABS: BLOOD UREA NITROGEN 14 MG/DL (9-20); CALCIUM 8.9 MG/DL (8.4-10.2); CALCULATED OSMOLALITY 258 MOs/Kg (270-290); CHLORIDE 96 mEq/L (98-107); GLUCOSE 80 MG/DL (70-99); SODIUM LEVEL 134 mEq/L (137-146)
[2016-06-03] MEDS: LR 1,000 ML IV SCH ×3 (08:31→18:10)
[2016-06-03] MEDS: MAGNESIUM HYDROXIDE 30 ML BOTTLE PO SCH (08:35)
[2016-06-03] MEDS: FUROSEMIDE 20 MG/2 ML VIAL IV SCH ×2 (08:39→15:57)
[2016-06-03] MEDS: Docusate Sodium 100 MG CAP PO SCH ×2 (08:39→20:18)
[2016-06-03] MEDS: FLUTICASONE/SALMETEROL 250/50 DISKUS INH SCH ×2 (09:22→19:20)
[2016-06-03] MEDS: Levofloxacin 750 mg/150 ml D5W 750 MG/150 ML RTU IV SCH (09:43)
--- NOTE | 2016-06-03 10:19 | PCM.SURGRO ---
- Subjective Patient: Reports: No new complaints, Feels better, Flatus, No Bowel Movement - Objective / Physical Exam Vital Signs: Temperature: 98.6 F (06/03/16 06:08) HR: 105 (06/03/16 08:00)RR: 18 (06/03/16 06 :08) BP: 138/63 (06/03/16 06:08)Pulse Ox: 93 (06/03/16 08:00) General: Alert, Oriented x3, Cooperative Respiratory: Normal - CTA Cardiovascular: Regular rate and rhythm Gastrointestinal: Soft, Tender. negative: Guarding Skin: Warm,Dry and Intact, No rashes, No breakdown Surgical wound site: Clean/Dry, Intact Laboratory/Diagnostics Reviewed: 06/03/16 05:35 06/03/16 05:35 Laboratory Results - last 24 hr 06/03/16 06/03/16 05:35 05:35 WBC 12.3 H RBC 3.82 L Hgb 11.8 L Hct 35.4 L MCV 93 MCH 30.8 MCHC 33.2 RDW 14.1 Plt Count 340 MPV 7.8 Neut % (Auto) 72.5 Lymph % (Auto) 15.8 L [place] % (Auto) 6.3 Eos % (Auto) 4.4 Baso % (Auto) 1.0 Absolute Neuts (auto) 8.86 H Absolute Lymphs (auto) 1.85 Sodium 134 L Potassium 4.1 Chloride 96 L Carbon Dioxide 28 Anion Gap 14 BUN 14 Creatinine 1.10 Estimated GFR (MDRD) > 60 Glucose 80 Calculated Osmolality 258 L Calcium 8.9 - Assessment and Plan (1) Asthma Acute J45.909 - UNSPECIFIED ASTHMA, UNCOMPLICATED Present on Admission: Yes moderate persistent uncomplicated J45.40 - Moderate persistent asthma, uncomplicated (2) Diverticulitis Acute K57.92 - DVTRCLI OF INTEST, PART UNSP, W/O PERF OR ABSCESS W/O BLEED Present on Admission: Yes (3) Emphysema with chronic bronchitis Acute J44.9 - CHRONIC OBSTRUCTIVE PULMONARY DISEASE, UNSPECIFIED Present on Admission: Yes (4) Hypertension Acute I10 - ESSENTIAL (PRIMARY) HYPERTENSION Present on Admission: Yes essential hypertension I10 - Essential (primary) hypertension Plan: Clamp NGT. Increase activity. Await return of bowel function.
[2016-06-03] MEDS: PROBIOTIC BLEND TAB PO SCH ×2 (11:52→15:58)
--- NOTE | 2016-06-03 15:49 | GENMEDPROG ---
Chief Complaint: says passing gas Notes Reviewed: Yes Events from last night noted and discussed with Clinical Staff Current Medication List: Reviewed Currently: Reports: SANTOYO, Sputum, Reflux Sx, Abdominal Pain. Denies: Diarrhea, Nausea and Vomiting, Fever/Chills DVT Prophylaxis: Yes - Physical Examination Vital Signs and I&O: Last Vital Signs Temp 98.8 F 06/03/16 13:44 Pulse 100 06/03/16 13:44 Resp 18 06/03/16 13:44 BP 128/83 06/03/16 13:44 Pulse Ox 93 06/03/16 14:12 Oxygen Pulse Oxygen Saturation 93 O2 Device Room Air Oxygen Flow Rate 1 Fraction of Inspired Oxygen ( FIO2) Intake & Output 05/31/16 06/01/16 06/02/16 06/03/16 23:59 23:59 23:59 23:59 Intake Total 1357 799 3258 1122 Output Total 2600 1050 2090 1255 Balance -900 -76 2227 -133 Patient's weight 78.075 kg 74.979 kg 74.979 kg 76.402 kg General: Alert, Oriented x3, Cooperative HEENT: Normal (Normocephalic, atraumatic;EOMI.Sclera white, Nares patent, without discharge or bleeding. No oropharyngeal lesions or erythema. Mucous membranes are dry.) Neck: Non-tender, Full range of motion, Normal Trachea alignment, Normal inspection (No cervical lymphadenopathy. No supraclavicular lymphadenopathy.), No Masses palpable, Supple Lymphatics: Normal (No lymph node swelling or pain.) Respiratory: Normal - CTA, Diminished. negative: Rales, Rhonchi, Wheezes Cardiovascular: Regular rate and rhythm, Normal S1, No Gallops,Rubs/Murmurs, Normal S2 GI: No hepatospenomegaly, No masses, Tenderness, Generalized, Guarding, Other ( Ostomy site present left lower quadrant draining serosanguineous fluid). negative: Normal bowel sounds (Barely perceptible bowel sounds) Extremities/Musculoskeletal: Normal pulses (DP pulses 2+ bilaterally) Skin: Warm,Dry and Intact, No rashes, No breakdown Neurological: Strength at 5/5 X4 ext (Motor 5/5 throughout.), Normal tone, Cranial nerves 3-12 NL ( 2-12 grossly intact.) Psych/Mental Status: Appropriate, Normal Affect Lab/DI/Studies Reviewed: 06/03/16 05:35 06/03/16 05:35 Laboratory Results - last 24 hr 06/03/16 06/03/16 05:35 05:35 WBC 12.3 H RBC 3.82 L Hgb 11.8 L Hct 35.4 L MCV 93 MCH 30.8 MCHC 33.2 RDW 14.1 Plt Count 340 MPV 7.8 Neut % (Auto) 72.5 Lymph % (Auto) 15.8 L [place] % (Auto) 6.3 Eos % (Auto) 4.4 Baso % (Auto) 1.0 Absolute Neuts (auto) 8.86 H Absolute Lymphs (auto) 1.85 Sodium 134 L Potassium 4.1 Chloride 96 L Carbon Dioxide 28 Anion Gap 14 BUN 14 Creatinine 1.10 Estimated GFR (MDRD) > 60 Glucose 80 Calculated Osmolality 258 L Calcium 8.9 - Assessment (1) Abdominal pain Acute R10.9 - UNSPECIFIED ABDOMINAL PAIN Qualifiers: Abdominal location: left lower quadrant Qualified Code(s): R10.32 - Left lower quadrant pain Comment/Plan: Continue narcotic analgesics on as needed basis. (2) Abscess of sigmoid colon due to diverticulitis Acute K57.20 - DVTRCLI OF LG INT W PERFORATION AND ABSCESS W/O BLEEDING Comment/Plan: Continue IV fluids, IV antibiotics Levaquin and Flagyl. Now status post surgical colostomy creation. Doing well await bowel function returned. (3) Asthma Acute J45.909 - UNSPECIFIED ASTHMA, UNCOMPLICATED Qualifiers: Asthma severity: moderate persistent Asthma complication type: uncomplicated Qualified Code(s): J45.40 - Moderate persistent asthma, uncomplicated Comment/Plan: Stable, no wheezes on exam. Continue p.r.n. nebulizers. (4) Hypercholesterolemia Acute E78.00 - PURE HYPERCHOLESTEROLEMIA, UNSPECIFIED Comment/Plan: Patient states he used to be on medication but stop taking it because he could not afford it. Will start him on something that is on the 4 dollar list at discharge. (5) Hypertension Acute I10 - ESSENTIAL (PRIMARY) HYPERTENSION Qualifiers: Hypertension type: essential hypertension Qualified Code(s): I10 - Essential (primary) hypertension Comment/Plan: Blood pressure currently acceptable. (6) GERD (gastroesophageal reflux disease) Chronic K21.9 - GASTRO-ESOPHAGEAL REFLUX DISEASE WITHOUT ESOPHAGITIS Qualifiers: Esophagitis presence: without esophagitis Qualified Code(s): K21.9 - Gastro -esophageal reflux disease without esophagitis Comment/Plan: Continue PPI Case Care Discussed with: Patient, Nursing Staff, Resource Management Education/Counseling Given To: Patient Education/Counseling Given Regarding: Diagnosis Total Time: 39 min Critical Care: No Code: 61844 (12+)
[2016-06-03] MEDS: ENOXAPARIN 40 MG/0.4 ML PFS SQ SCH (18:10)
[2016-06-04] MEDS: Albuterol/Ipratropium Neb 3 ML NEB NEB SCH ×4 (01:20→19:17)
[2016-06-04] MEDS: SIMETHICONE 80 MG TAB PO SCH ×8 (03:13→23:16)
[2016-06-04] MEDS: PIPERACILLIN AND TAZOBACTAM 3.375 GM in D5W 100 ML IV SCH ×4 (03:22→23:14)
[2016-06-04] MEDS: LR 1,000 ML IV SCH ×5 (04:30→23:18)
[2016-06-04] MEDS: PANTOPRAZOLE 40 MG TAB PO SCH (04:59)
[2016-06-04] MEDS: SODIUM CHLORIDE 0.9% 3 ML FLUSH FLUSH SCH ×2 (05:00→17:49)
[2016-06-04] MEDS: ACETAMINOPHEN 325 MG/TAB TABLET PO SCH ×3 (05:00→23:14)
[2016-06-04] MEDS: HYDROmorphone 50 ML IV PRN ×3 (06:45→23:40)
[2016-06-04] MEDS: FLUTICASONE/SALMETEROL 250/50 DISKUS INH SCH ×2 (08:17→19:17)
[2016-06-04] MEDS: FUROSEMIDE 20 MG/2 ML VIAL IV SCH ×2 (08:38→15:17)
[2016-06-04] MEDS: Docusate Sodium 100 MG CAP PO SCH ×2 (08:38→20:36)
[2016-06-04] MEDS: MAGNESIUM HYDROXIDE 30 ML BOTTLE PO SCH (08:39)
[2016-06-04] MEDS: PROBIOTIC BLEND TAB PO SCH ×2 (11:01→17:54)
[2016-06-04] MEDS: ENOXAPARIN 40 MG/0.4 ML PFS SQ SCH (17:54)
--- NOTE | 2016-06-04 19:43 | GENMEDPROG ---
Notes Reviewed: Yes Events from last night noted and discussed with Clinical Staff Current Medication List: Reviewed Currently: Reports: SANTOYO, Sputum, Reflux Sx, Abdominal Pain. Denies: Diarrhea, Nausea and Vomiting, Fever/Chills DVT Prophylaxis: Yes - Physical Examination Vital Signs and I&O: Last Vital Signs Temp 97.9 F 06/04/16 13:45 Pulse 97 06/04/16 13:45 Resp 20 06/04/16 17:45 BP 148/79 06/04/16 13:45 Pulse Ox 97 06/04/16 13:45 Oxygen Pulse Oxygen Saturation 97 O2 Device Room Air Oxygen Flow Rate 1 Fraction of Inspired Oxygen ( FIO2) Intake & Output 06/01/16 06/02/16 06/03/16 06/04/16 23:59 23:59 23:59 23:59 Intake Total 974 4317 2970 2711 Output Total 1050 2090 2670 3150 Balance -76 2227 300 -439 Patient's weight 74.979 kg 74.979 kg 76.402 kg 76.459 kg General: Alert, Oriented x3, Cooperative HEENT: Normal (Normocephalic, atraumatic;EOMI.Sclera white, Nares patent, without discharge or bleeding. No oropharyngeal lesions or erythema. Mucous membranes are dry.) Neck: Non-tender, Full range of motion, Normal Trachea alignment, Normal inspection (No cervical lymphadenopathy. No supraclavicular lymphadenopathy.), No Masses palpable, Supple Lymphatics: Normal (No lymph node swelling or pain.) Respiratory: Normal - CTA, Diminished. negative: Rales, Rhonchi, Wheezes Cardiovascular: Regular rate and rhythm, Normal S1, No Gallops,Rubs/Murmurs, Normal S2 GI: No hepatospenomegaly, No masses, Tenderness, Generalized, Guarding, Other ( Ostomy site present left lower quadrant draining serosanguineous fluid). negative: Normal bowel sounds (Barely perceptible bowel sounds) Extremities/Musculoskeletal: Normal pulses (DP pulses 2+ bilaterally) Skin: Warm,Dry and Intact, No rashes, No breakdown Neurological: Strength at 5/5 X4 ext (Motor 5/5 throughout.), Normal tone, Cranial nerves 3-12 NL ( 2-12 grossly intact.) Psych/Mental Status: Appropriate, Normal Affect Lab/DI/Studies Reviewed: 06/03/16 05:35 06/03/16 05:35 - Assessment (1) Abscess of sigmoid colon due to diverticulitis Acute K57.20 - DVTRCLI OF LG INT W PERFORATION AND ABSCESS W/O BLEEDING Comment/Plan: Continue IV fluids, IV antibiotics Zosyn and probiotic. Now status post surgical colostomy creation. Doing well await bowel function returned. NG tube clamped today. (2) Abdominal pain Acute R10.9 - UNSPECIFIED ABDOMINAL PAIN Qualifiers: Abdominal location: left lower quadrant Qualified Code(s): R10.32 - Left lower quadrant pain Comment/Plan: Continue narcotic analgesics on as needed basis. (3) Asthma Acute J45.909 - UNSPECIFIED ASTHMA, UNCOMPLICATED Qualifiers: Asthma severity: moderate persistent Asthma complication type: uncomplicated Qualified Code(s): J45.40 - Moderate persistent asthma, uncomplicated Comment/Plan: Stable, no wheezes on exam. Continue p.r.n. nebulizers. (4) Hypercholesterolemia Acute E78.00 - PURE HYPERCHOLESTEROLEMIA, UNSPECIFIED Comment/Plan: Patient states he used to be on medication but stop taking it because he could not afford it. Will start him on something that is on the 4 dollar list at discharge. (5) Hypertension Acute I10 - ESSENTIAL (PRIMARY) HYPERTENSION Qualifiers: Hypertension type: essential hypertension Qualified Code(s): I10 - Essential (primary) hypertension Comment/Plan: Blood pressure currently acceptable. (6) GERD (gastroesophageal reflux disease) Chronic K21.9 - GASTRO-ESOPHAGEAL REFLUX DISEASE WITHOUT ESOPHAGITIS Qualifiers: Esophagitis presence: without esophagitis Qualified Code(s): K21.9 - Gastro -esophageal reflux disease without esophagitis Comment/Plan: Continue PPI Case Care Discussed with: Patient, Nursing Staff, Resource Management Education/Counseling Given To: Patient Education/Counseling Given Regarding: Diagnosis Total Time: 38 minutes Critical Care: No Code: 58590 (12+)
[2016-06-05] MEDS: Albuterol/Ipratropium Neb 3 ML NEB NEB SCH ×4 (01:20→19:19)
[2016-06-05] MEDS: LR 1,000 ML IV SCH ×3 (02:58→17:30)
[2016-06-05] MEDS: SIMETHICONE 80 MG TAB PO SCH ×7 (04:12→21:04)
[2016-06-05] MEDS: PIPERACILLIN AND TAZOBACTAM 3.375 GM in D5W 100 ML IV SCH ×2 (04:45→09:38)
[2016-06-05] MEDS: SODIUM CHLORIDE 0.9% 3 ML FLUSH FLUSH SCH ×2 (04:46→17:17)
[2016-06-05] MEDS: ACETAMINOPHEN 325 MG/TAB TABLET PO SCH ×3 (04:47→21:04)
[2016-06-05] MEDS: PANTOPRAZOLE 40 MG TAB PO SCH (04:47)
[2016-06-05] MEDS: FUROSEMIDE 20 MG/2 ML VIAL IV SCH ×2 (07:48→14:50)
[2016-06-05] MEDS: Docusate Sodium 100 MG CAP PO SCH ×2 (07:49→21:04)
[2016-06-05] MEDS: MAGNESIUM HYDROXIDE 30 ML BOTTLE PO SCH (07:49)
[2016-06-05] MEDS: FLUTICASONE/SALMETEROL 250/50 DISKUS INH SCH ×2 (08:34→19:19)
--- NOTE | 2016-06-05 10:55 | PCM.SURGRO ---
- Subjective Patient: Reports: No new complaints, Feels better, Flatus - Objective / Physical Exam Vital Signs: Temperature: 98.5 F (06/05/16 06:00) HR: 88 (06/05/16 06:00)RR: 17 (06/05/16 07: 34) BP: 115/80 (06/05/16 06:00)Pulse Ox: 94 (06/05/16 08:35) General: Alert, Oriented x3, Cooperative HEENT: Normal, Anicteric Sclera Respiratory: Normal - CTA Cardiovascular: Regular rate and rhythm Gastrointestinal: Soft, Tender. negative: Distended Skin: Warm,Dry and Intact Laboratory/Diagnostics Reviewed: 06/03/16 05:35 06/03/16 05:35 - Assessment and Plan (1) Asthma Acute J45.909 - UNSPECIFIED ASTHMA, UNCOMPLICATED Present on Admission: Yes moderate persistent uncomplicated J45.40 - Moderate persistent asthma, uncomplicated (2) Diverticulitis Acute K57.92 - DVTRCLI OF INTEST, PART UNSP, W/O PERF OR ABSCESS W/O BLEED Present on Admission: Yes (3) Emphysema with chronic bronchitis Acute J44.9 - CHRONIC OBSTRUCTIVE PULMONARY DISEASE, UNSPECIFIED Present on Admission: Yes (4) Hypertension Acute I10 - ESSENTIAL (PRIMARY) HYPERTENSION Present on Admission: Yes essential hypertension I10 - Essential (primary) hypertension Plan: Will advance to full liquids. Plan to d/c in the next 2 days. Arranging for home health.
[2016-06-05] MEDS: PROBIOTIC BLEND TAB PO SCH ×2 (12:00→17:16)
[2016-06-05] MEDS: HYDROmorphone 50 ML IV PRN ×2 (12:21→21:05)
[2016-06-05] MEDS: ENOXAPARIN 40 MG/0.4 ML PFS SQ SCH (17:16)
--- NOTE | 2016-06-05 17:27 | GENMEDPROG ---
Chief Complaint: Bowel activity has improved with dark liquid coming through colostomy Notes Reviewed: Yes Events from last night noted and discussed with Clinical Staff Current Medication List: Reviewed Currently: Reports: SANTOYO, Sputum, Reflux Sx, Abdominal Pain. Denies: Diarrhea, Nausea and Vomiting, Fever/Chills DVT Prophylaxis: Yes - Physical Examination Vital Signs and I&O: Last Vital Signs Temp 98.2 F 06/05/16 14:00 Pulse 95 06/05/16 14:00 Resp 18 06/05/16 16:00 BP 140/83 06/05/16 14:00 Pulse Ox 95 06/05/16 14:00 Oxygen Pulse Oxygen Saturation 95 O2 Device Room Air Oxygen Flow Rate 1 Fraction of Inspired Oxygen ( FIO2) Intake & Output 06/02/16 06/03/16 06/04/16 06/05/16 23:59 23:59 23:59 23:59 Intake Total 4317 2970 2711 4370 Output Total 2090 2670 3450 3210 Balance 2227 300 -739 1160 Patient's weight 74.979 kg 76.402 kg 76.459 kg 77.791 kg General: Alert, Oriented x3, Cooperative HEENT: Normal, Anicteric Sclera Neck: Non-tender, Full range of motion, Normal Trachea alignment, Normal inspection (No cervical lymphadenopathy. No supraclavicular lymphadenopathy.), No Masses palpable, Supple Lymphatics: Normal (No lymph node swelling or pain.) Respiratory: Normal - CTA Cardiovascular: Regular rate and rhythm, Normal S1, No Gallops,Rubs/Murmurs, Normal S2 GI: Normal bowel sounds (normal active sounds), Soft (non-distended), No hepatospenomegaly, No masses, Tenderness (Very mild left lower quadrant tenderness), Other (Left lower quadrant ostomy draining dark go liquid stool) Extremities/Musculoskeletal: Normal pulses (DP pulses 2+ bilaterally) Skin: Warm,Dry and Intact, No rashes, No breakdown, No significant lesion Neurological: Strength at 5/5 X4 ext (Motor 5/5 throughout.), Normal tone, Cranial nerves 3-12 NL ( 2-12 grossly intact.) Psych/Mental Status: Appropriate, Normal Affect Lab/DI/Studies Reviewed: 06/03/16 05:35 06/03/16 05:35 - Assessment (1) Abscess of sigmoid colon due to diverticulitis Acute K57.20 - DVTRCLI OF LG INT W PERFORATION AND ABSCESS W/O BLEEDING Comment/Plan: Continue IV fluids, IV antibiotics Zosyn and probiotic. Now status post surgical colostomy creation. Bowel function is improving and diet is to be advance to full liquids today. (2) Abdominal pain Acute R10.9 - UNSPECIFIED ABDOMINAL PAIN Qualifiers: Abdominal location: left lower quadrant Qualified Code(s): R10.32 - Left lower quadrant pain Comment/Plan: Continue narcotic analgesics on as needed basis. (3) Asthma Acute J45.909 - UNSPECIFIED ASTHMA, UNCOMPLICATED Qualifiers: Asthma severity: moderate persistent Asthma complication type: uncomplicated Qualified Code(s): J45.40 - Moderate persistent asthma, uncomplicated Comment/Plan: Stable, no wheezes on exam. Continue p.r.n. nebulizers. (4) Hypercholesterolemia Acute E78.00 - PURE HYPERCHOLESTEROLEMIA, UNSPECIFIED Comment/Plan: Patient states he used to be on medication but stop taking it because he could not afford it. Will start him on something that is on the 4 dollar list at discharge. (5) Hypertension Acute I10 - ESSENTIAL (PRIMARY) HYPERTENSION Qualifiers: Hypertension type: essential hypertension Qualified Code(s): I10 - Essential (primary) hypertension Comment/Plan: Blood pressure currently acceptable. (6) GERD (gastroesophageal reflux disease) Chronic K21.9 - GASTRO-ESOPHAGEAL REFLUX DISEASE WITHOUT ESOPHAGITIS Qualifiers: Esophagitis presence: without esophagitis Qualified Code(s): K21.9 - Gastro -esophageal reflux disease without esophagitis Comment/Plan: Continue PPI Case Care Discussed with: Patient, Consultants, Nursing Staff, Resource Management Education/Counseling Given To: Patient Education/Counseling Given Regarding: Diagnosis, Treatment Total Time: 38 miin Critical Care: No Code: 15838 (12+)
[2016-06-06] MEDS: SIMETHICONE 80 MG TAB PO SCH ×9 (00:14→20:58)
[2016-06-06] MEDS: Albuterol/Ipratropium Neb 3 ML NEB NEB SCH ×4 (01:15→20:42)
[2016-06-06] MEDS: LR 1,000 ML IV SCH ×5 (02:43→22:48)
[2016-06-06] MEDS ORDERED: NS 250 ML IV ONE (02:47)
[2016-06-06] MEDS: SODIUM CHLORIDE 0.9% 3 ML FLUSH FLUSH SCH ×2 (06:27→16:54)
[2016-06-06] MEDS: PANTOPRAZOLE 40 MG TAB PO SCH (06:28)
[2016-06-06] MEDS: ACETAMINOPHEN 325 MG/TAB TABLET PO SCH ×3 (06:28→20:58)
[2016-06-06] MEDS: FLUTICASONE/SALMETEROL 250/50 DISKUS INH SCH ×2 (07:36→20:44)
[2016-06-06] MEDS: HYDROmorphone 50 ML IV PRN ×2 (08:18→18:09)
[2016-06-06] MEDS: FUROSEMIDE 20 MG/2 ML VIAL IV SCH ×2 (08:22→16:53)
[2016-06-06] MEDS: Docusate Sodium 100 MG CAP PO SCH ×2 (08:22→20:58)
[2016-06-06] MEDS: MAGNESIUM HYDROXIDE 30 ML BOTTLE PO SCH (08:22)
[2016-06-06] MEDS: PROBIOTIC BLEND TAB PO SCH ×2 (08:23→16:53)
[2016-06-06] MEDS: ENOXAPARIN 40 MG/0.4 ML PFS SQ SCH (16:54)
--- NOTE | 2016-06-06 17:52 | PCM.SURGRO ---
- Subjective Patient: Reports: No new complaints, Feels better, Bowel Movement - Objective / Physical Exam Vital Signs: Temperature: 97.6 F (06/06/16 14:11) HR: 98 (06/06/16 14:11)RR: 19 (06/06/16 17: 04) BP: 119/67 (06/06/16 14:11)Pulse Ox: 96 (06/06/16 14:11) General: Alert, Oriented x3, Cooperative HEENT: EOMI, Anicteric Sclera Respiratory: Normal - CTA Cardiovascular: Regular rate and rhythm Gastrointestinal: Soft, Tender. negative: Distended Extremities: Edema. negative: Clubbing, Cyanosis Skin: Warm,Dry and Intact Laboratory/Diagnostics Reviewed: 06/03/16 05:35 06/03/16 05:35 - Assessment and Plan (1) Asthma Acute J45.909 - UNSPECIFIED ASTHMA, UNCOMPLICATED Present on Admission: Yes moderate persistent uncomplicated J45.40 - Moderate persistent asthma, uncomplicated (2) Diverticulitis Acute K57.92 - DVTRCLI OF INTEST, PART UNSP, W/O PERF OR ABSCESS W/O BLEED Present on Admission: Yes (3) Emphysema with chronic bronchitis Acute J44.9 - CHRONIC OBSTRUCTIVE PULMONARY DISEASE, UNSPECIFIED Present on Admission: Yes (4) Hypertension Acute I10 - ESSENTIAL (PRIMARY) HYPERTENSION Present on Admission: Yes essential hypertension I10 - Essential (primary) hypertension Plan: Avance to low residue diet. dressing changes as ordered. Home soon.
--- NOTE | 2016-06-06 23:33 | GENMEDPROG ---
Chief Complaint: feeling much better Notes Reviewed: Yes Events from last night noted and discussed with Clinical Staff Current Medication List: Reviewed Currently: Reports: SANTOYO, Sputum, Reflux Sx, Abdominal Pain. Denies: Diarrhea, Nausea and Vomiting, Fever/Chills DVT Prophylaxis: Yes - Physical Examination Vital Signs and I&O: Last Vital Signs Temp 97.9 F 06/06/16 21:45 Pulse 87 06/06/16 21:45 Resp 18 06/06/16 22:48 BP 110/68 06/06/16 21:45 Pulse Ox 97 06/06/16 21:45 Oxygen Pulse Oxygen Saturation 97 O2 Device Room Air Oxygen Flow Rate 1 Fraction of Inspired Oxygen ( FIO2) Intake & Output 06/03/16 06/04/16 06/05/16 06/06/16 23:59 23:59 23:59 23:59 Intake Total 2970 2711 5723 5867 Output Total 2670 3450 4675 4670 Balance 300 -739 1048 1197 Patient's weight 76.402 kg 76.459 kg 77.791 kg 77.423 kg General: Alert, Oriented x3, Cooperative HEENT: EOMI, Anicteric Sclera Lymphatics: Normal (No lymph node swelling or pain.) Respiratory: Normal - CTA, Diminished. negative: Accessory Muscle Use, Rales, Retractions, Rhonchi, Wheezes Cardiovascular: Regular rate and rhythm, Normal S1, No Gallops,Rubs/Murmurs, Normal S2 GI: Normal bowel sounds (normal active sounds), Soft (non-distended), No hepatospenomegaly, No masses, Tenderness (minimal). negative: Non tender Extremities/Musculoskeletal: Edema. negative: Clubbing, Cyanosis Skin: Warm,Dry and Intact Neurological: Strength at 5/5 X4 ext (Motor 5/5 throughout.), Normal tone, Cranial nerves 3-12 NL ( 2-12 grossly intact.) Psych/Mental Status: Appropriate, Normal Affect Lab/DI/Studies Reviewed: 06/03/16 05:35 06/03/16 05:35 - Assessment (1) Abscess of sigmoid colon due to diverticulitis Acute K57.20 - DVTRCLI OF LG INT W PERFORATION AND ABSCESS W/O BLEEDING Comment/Plan: Continue IV fluids, IV antibiotics Zosyn and probiotic. Now status post surgical colostomy creation. Bowel function is improving and diet is to continue to advance. (2) Abdominal pain Acute R10.9 - UNSPECIFIED ABDOMINAL PAIN Qualifiers: Abdominal location: left lower quadrant Qualified Code(s): R10.32 - Left lower quadrant pain Comment/Plan: Continue narcotic analgesics on as needed basis. (3) Asthma Acute J45.909 - UNSPECIFIED ASTHMA, UNCOMPLICATED Qualifiers: Asthma severity: moderate persistent Asthma complication type: uncomplicated Qualified Code(s): J45.40 - Moderate persistent asthma, uncomplicated Comment/Plan: Stable, no wheezes on exam. Continue p.r.n. nebulizers. (4) Hypercholesterolemia Acute E78.00 - PURE HYPERCHOLESTEROLEMIA, UNSPECIFIED Comment/Plan: Patient states he used to be on medication but stop taking it because he could not afford it. Will start him on something that is on the 4 dollar list at discharge. (5) Hypertension Acute I10 - ESSENTIAL (PRIMARY) HYPERTENSION Qualifiers: Hypertension type: essential hypertension Qualified Code(s): I10 - Essential (primary) hypertension Comment/Plan: Blood pressure currently acceptable. (6) GERD (gastroesophageal reflux disease) Chronic K21.9 - GASTRO-ESOPHAGEAL REFLUX DISEASE WITHOUT ESOPHAGITIS Qualifiers: Esophagitis presence: without esophagitis Qualified Code(s): K21.9 - Gastro -esophageal reflux disease without esophagitis Comment/Plan: Continue PPI Disposition Plan: home soon ? in pm Case Care Discussed with: Patient, Nursing Staff Education/Counseling Given To: Patient Education/Counseling Given Regarding: Diagnosis Total Time: 38 min Critical Care: No Code: 58976 (12+)
[2016-06-07] MEDS: SIMETHICONE 80 MG TAB PO SCH ×8 (00:40→21:50)
[2016-06-07] MEDS: Albuterol/Ipratropium Neb 3 ML NEB NEB SCH ×4 (01:49→20:28)
[2016-06-07] MEDS: HYDROmorphone 50 ML IV PRN (05:05)
[2016-06-07] MEDS: SODIUM CHLORIDE 0.9% 3 ML FLUSH FLUSH SCH ×2 (05:07→17:50)
[2016-06-07] MEDS: ACETAMINOPHEN 325 MG/TAB TABLET PO SCH ×3 (05:07→21:49)
[2016-06-07] MEDS: PANTOPRAZOLE 40 MG TAB PO SCH (05:07)
[2016-06-07 06:55] LABS: AUTOMATED BASOPHIL 1.2 % (0-2); AUTOMATED EOSINOPHIL 6.8 % (0-5); AUTOMATED LYMPH 30.6 % (17-44); AUTOMATED MONOCYTE 11.5 % (3-10); AUTOMATED NEUTROPHIL 49.9 % (45-76); MPV 7.6 fL (7.4-10.4)
[2016-06-07 07:28] LABS: BLOOD UREA NITROGEN 4 MG/DL (9-20); CALCIUM 8.5 MG/DL (8.4-10.2); CALCULATED OSMOLALITY 258 MOs/Kg (270-290); CHLORIDE 96 mEq/L (98-107); GLUCOSE 108 MG/DL (70-99); SODIUM LEVEL 135 mEq/L (137-146)
[2016-06-07] MEDS: Docusate Sodium 100 MG CAP PO SCH ×2 (08:46→21:49)
[2016-06-07] MEDS: MAGNESIUM HYDROXIDE 30 ML BOTTLE PO SCH (08:46)
[2016-06-07] MEDS: FUROSEMIDE 20 MG/2 ML VIAL IV SCH ×2 (08:46→15:37)
[2016-06-07] MEDS: FLUTICASONE/SALMETEROL 250/50 DISKUS INH SCH ×2 (09:13→20:38)
[2016-06-07] MEDS: PROBIOTIC BLEND TAB PO SCH ×2 (11:34→17:48)
--- NOTE | 2016-06-07 13:32 | PCM.SURGRO ---
- Objective / Physical Exam Vital Signs: Temperature: 98.2 F (06/07/16 05:40) HR: 82 (06/07/16 05:40)RR: 19 (06/07/16 11: 34) BP: 162/86 (06/07/16 05:40)Pulse Ox: 97 (06/07/16 05:40) General: Alert, Oriented x3, Cooperative HEENT: Normal, EOMI, Anicteric Sclera Respiratory: Normal - CTA. negative: Rales, Rhonchi, Wheezes Cardiovascular: Regular rate and rhythm, No Gallops,Rubs/Murmurs Gastrointestinal: Soft, Tender. negative: Distended, Guarding Extremities: Normal pulses, Edema. negative: Clubbing, Cyanosis Skin: Warm,Dry and Intact, No rashes, No significant lesion Laboratory/Diagnostics Reviewed: 06/07/16 06:10 06/07/16 06:10 Laboratory Results - last 24 hr 06/07/16 06/07/16 06:10 06:10 WBC 6.1 RBC 3.38 L Hgb 10.4 L D Hct 30.8 L MCV 91 MCH 30.9 MCHC 33.9 RDW 14.0 Plt Count 368 MPV 7.6 Neut % (Auto) 49.9 Lymph % (Auto) 30.6 [place] % (Auto) 11.5 H Eos % (Auto) 6.8 H Baso % (Auto) 1.2 Absolute Neuts (auto) 2.99 Absolute Lymphs (auto) 1.83 Sodium 135 L Potassium 3.3 L Chloride 96 L Carbon Dioxide 34 H Anion Gap 8 BUN 4 L Creatinine 0.60 L Estimated GFR (MDRD) > 60 Glucose 108 H Calculated Osmolality 258 L Calcium 8.5 - Assessment and Plan (1) Asthma Acute J45.909 - UNSPECIFIED ASTHMA, UNCOMPLICATED Present on Admission: Yes moderate persistent uncomplicated J45.40 - Moderate persistent asthma, uncomplicated (2) Diverticulitis Acute K57.92 - DVTRCLI OF INTEST, PART UNSP, W/O PERF OR ABSCESS W/O BLEED Present on Admission: Yes (3) Emphysema with chronic bronchitis Acute J44.9 - CHRONIC OBSTRUCTIVE PULMONARY DISEASE, UNSPECIFIED Present on Admission: Yes (4) Hypertension Acute I10 - ESSENTIAL (PRIMARY) HYPERTENSION Present on Admission: Yes essential hypertension I10 - Essential (primary) hypertension Plan: Patient stable from surgical viewpoint. He has been more active and has more abdominal discomfort which is muscular in nature. Would like to wait until tomorrow before going home.
[2016-06-07] MEDS: LR 1,000 ML IV SCH ×2 (14:57→17:47)
[2016-06-07] MEDS: OXYCODONE HCL 5 MG TABLET PO PRN ×3 (15:29→23:42)
[2016-06-07] MEDS: CYCLOBENZAPRINE 10 MG TAB PO SCH (15:30)
[2016-06-07] MEDS ORDERED: FLUTICASONE/SALMETEROL 250/50 DISKUS INH SCH (16:00)
--- NOTE | 2016-06-07 16:02 | GENMEDPROG ---
Subjective Note: Patient sitting up tolerating liquids and low-fiber diet. Notes Reviewed: Yes Events from last night noted and discussed with Clinical Staff Current Medication List: Reviewed Currently: Reports: SANTOYO, Sputum, Reflux Sx, Abdominal Pain. Denies: Diarrhea, Nausea and Vomiting, Fever/Chills DVT Prophylaxis: Yes - Physical Examination Vital Signs and I&O: Last Vital Signs Temp 98.0 F 06/07/16 13:31 Pulse 94 06/07/16 13:31 Resp 20 06/07/16 13:46 BP 138/85 06/07/16 13:31 Pulse Ox 97 06/07/16 13:31 Oxygen Pulse Oxygen Saturation 97 O2 Device Room Air Oxygen Flow Rate 1 Fraction of Inspired Oxygen ( FIO2) Intake & Output 06/04/16 06/05/16 06/06/16 06/07/16 23:59 23:59 23:59 23:59 Intake Total 0733 5720 5867 2329 Output Total 3450 4675 4670 3127 Balance -739 1048 1197 -798 Patient's weight 76.459 kg 77.791 kg 77.423 kg 79.56 kg General: Alert, Oriented x3, Cooperative HEENT: Normal, EOMI, Anicteric Sclera Neck: Non-tender, Full range of motion, Normal Trachea alignment, Normal inspection (No cervical lymphadenopathy. No supraclavicular lymphadenopathy.), No Masses palpable, Supple Lymphatics: Normal (No lymph node swelling or pain.) Respiratory: Normal - CTA. negative: Rales, Rhonchi, Wheezes Cardiovascular: Regular rate and rhythm, No Gallops,Rubs/Murmurs GI: Soft, Tenderness. negative: Rebound (Very mild), Guarding Extremities/Musculoskeletal: Normal pulses, Edema. negative: Clubbing, Cyanosis Skin: Warm,Dry and Intact, No rashes, No significant lesion Lab/DI/Studies Reviewed: Abnormal Lab Results 06/07/16 06/07/16 06:10 06:10 RBC 3.38 L Hgb 10.4 L D Hct 30.8 L [place] % (Auto) 11.5 H Eos % (Auto) 6.8 H Sodium 135 L Potassium 3.3 L Chloride 96 L Carbon Dioxide 34 H BUN 4 L Creatinine 0.60 L Glucose 108 H Calculated Osmolality 258 L - Assessment (1) Abscess of sigmoid colon due to diverticulitis Acute K57.20 - DVTRCLI OF LG INT W PERFORATION AND ABSCESS W/O BLEEDING Comment/Plan: Doing well. Tolerating p.o.. Hopefully discharge soon. (2) Hypertension Acute I10 - ESSENTIAL (PRIMARY) HYPERTENSION Qualifiers: Hypertension type: essential hypertension Qualified Code(s): I10 - Essential (primary) hypertension Comment/Plan: Blood pressure currently acceptable. (3) Emphysema with chronic bronchitis Acute J44.9 - CHRONIC OBSTRUCTIVE PULMONARY DISEASE, UNSPECIFIED Comment/ Plan: Continue supportive care. No evidence of decompensation. (4) Asthma Acute J45.909 - UNSPECIFIED ASTHMA, UNCOMPLICATED Qualifiers: Asthma severity: moderate persistent Asthma complication type: uncomplicated Qualified Code(s): J45.40 - Moderate persistent asthma, uncomplicated Comment/Plan: Stable, no wheezes on exam. Continue p.r.n. nebulizers. (5) History of depression Chronic Z86.59 - PERSONAL HISTORY OF OTHER MENTAL AND BEHAVIORAL DISORDERS Comment/Plan: Noted he stated that he used to take Prozac in the past but when off it because he did feel like it was working any more. (6) Hypercholesterolemia Acute E78.00 - PURE HYPERCHOLESTEROLEMIA, UNSPECIFIED Comment/Plan: Patient states he used to be on medication but stop taking it because he could not afford it. Will start him on something that is on the 4 dollar list at discharge. - Plan Continue current plan to increase diet. Disposition Plan: home soon Case Care Discussed with: Patient, Nursing Staff Education/Counseling Given To: Patient Education/Counseling Given Regarding: Diagnosis, Treatment, Prognosis, Follow Up , Disposition Plan Total Time: 45 minutes. Critical Care: No Couseling Time (>50% in counseling/coordination): No
[2016-06-07] MEDS: KCL 20 mEq/100 ml Premix Run 20 MEQ/100 ML RTU IV SCH ×2 (17:46→21:48)
[2016-06-07] MEDS: ENOXAPARIN 40 MG/0.4 ML PFS SQ SCH (17:49)
[2016-06-08] MEDS: SIMETHICONE 80 MG TAB PO SCH ×5 (00:12→11:12)
[2016-06-08] MEDS: KCL 20 mEq/100 ml Premix Run 20 MEQ/100 ML RTU IV SCH (00:13)
[2016-06-08] MEDS: Albuterol/Ipratropium Neb 3 ML NEB NEB SCH ×2 (01:43→09:29)
[2016-06-08] MEDS: OXYCODONE HCL 5 MG TABLET PO PRN ×2 (03:50→08:22)
[2016-06-08 05:44] LABS: AUTOMATED BASOPHIL 1.2 % (0-2); AUTOMATED EOSINOPHIL 7.9 % (0-5); AUTOMATED LYMPH 37.7 % (17-44); AUTOMATED MONOCYTE 12.2 % (3-10); MPV 7.6 fL (7.4-10.4)
[2016-06-08 06:00] LABS: BLOOD UREA NITROGEN 4 MG/DL (9-20); CALCIUM 8.5 MG/DL (8.4-10.2); CALCULATED OSMOLALITY 263 MOs/Kg (270-290); CHLORIDE 100 mEq/L (98-107); GLUCOSE 103 MG/DL (70-99); SODIUM LEVEL 138 mEq/L (137-146)
[2016-06-08] MEDS: ACETAMINOPHEN 325 MG/TAB TABLET PO SCH (06:18)
[2016-06-08] MEDS: SODIUM CHLORIDE 0.9% 3 ML FLUSH FLUSH SCH (06:19)
[2016-06-08] MEDS: PANTOPRAZOLE 40 MG TAB PO SCH (06:19)
[2016-06-08 07:08] VITALS: BP 144/84; PULSE 85; TEMP 97.6
[2016-06-08] MEDS: CYCLOBENZAPRINE 10 MG TAB PO SCH (08:17)
[2016-06-08] MEDS: FUROSEMIDE 20 MG/2 ML VIAL IV SCH (08:17)
[2016-06-08] MEDS: Docusate Sodium 100 MG CAP PO SCH (08:17)
[2016-06-08] MEDS: MAGNESIUM HYDROXIDE 30 ML BOTTLE PO SCH (08:18)
[2016-06-08] MEDS: FLUTICASONE/SALMETEROL 250/50 DISKUS INH SCH (09:31)
--- NOTE | 2016-06-08 10:06 | PCM.DCS92 ---
- Final/Secondary Discharge Diagnosis (1) Diverticulitis Acute K57.92 - DVTRCLI OF INTEST, PART UNSP, W/O PERF OR ABSCESS W/O BLEED Present on Admission: Yes (2) Asthma Acute J45.909 - UNSPECIFIED ASTHMA, UNCOMPLICATED Present on Admission: Yes moderate persistent uncomplicated J45.40 - Moderate persistent asthma, uncomplicated (3) Emphysema with chronic bronchitis Acute J44.9 - CHRONIC OBSTRUCTIVE PULMONARY DISEASE, UNSPECIFIED Present on Admission: Yes (4) Hypertension Acute I10 - ESSENTIAL (PRIMARY) HYPERTENSION Present on Admission: Yes essential hypertension I10 - Essential (primary) hypertension Discharge Disposition: Discharge w/ Home Health Discharge Condition: Stable Cognitive Discharge Status: Unimpaired Fuctional Discharge Status: Independent Physician Follow up/Referrals: Maria C Maguire MD [Primary Care Provider] - Call for Appointment Erick Kiran MD [Staff Physician] - Two Weeks Home Medications/ New Prescriptions: New Fluticasone/Salmeterol [Advair 250-50] 1 puff INH RTBID #2 inhaler Furosemide [Lasix] 20 mg PO BID #60 vial Oxycodone Immediate Release [Oxycodone Immediate Release (OxyIR)] 5 mg PO Q4H PRN #60 tablet PRN Reason: Moderate To Severe Pain Pantoprazole Sodium [Protonix] 40 mg PO DAILY #60 tablet Continue Fluticasone/Salmeterol [Advair 250-50] 1 puff INH .BID SEE COMMENTS See Comments About Past Meds 0 mg PO .SEE COMMENTS Nebulizer [Erapid Nebulizer] 1 each MC .UNKNOWN Albuterol Sulfate MDI [Proventil HFA] 2 puff INH Q4H PRN #2 inhaler PRN Reason: COUGH/WHEEZE/SHOB No Action Albuterol Sulfate [Proventil, Ventolin] 2.5 mg NEB Q4H PRN PRN Reason: Shortness Of Breath Diet at Discharge: Low Residue Activity: As Tolerated, No Heavy Lifting Call Office For: Worsening Symptoms - DC Summary Notes Hospital Course Note:: Discharge summary on patient named ANTHONY FAITH admitted to [facility] on 05/23/16 by Nidhi Edge MD. Date of discharge is 06/08/16. Patient had presented with diverticulitis. He was treated conservatively with IVF and IV antibiotics. He did not respond well and developed partial obstruction of sigmoid. He underwent resection of this area and has a colostomy. He is tolerating PO's. His asthma has been well controlled. We have arranged for home health to help with ostomy care and teaching. Will remain on low residue diet and advance to high fiber diet over the next week. Patient stable. - Physical Exam Vital Signs: Initial Vitals Temperature 98.3 F 05/23/16 04:41 Pulse Rate 98 05/23/16 04:41 Respiratory Rate 18 05/23/16 04:41 Blood Pressure 130/76 05/23/16 04:41 Pulse Oxygen Saturation 97 05/23/16 04:41 Constitutional: Alert Oriented to: Time, Person, Place - HEENT Head: Normal Respiratory: Normal - CTA. negative: Rales, Rhonchi, Wheezes Cardiovascular: Normal - GI Palpation: negative: Enlarged liver, Enlarged spleen Tenderness: Mild. negative: Guarding, Rebound Handley's Sign: Negative - Musculoskeletal Back: Normal. negative: Ecchymosis, CVA Tenderness Extremities: Edema. negative: Calf Tenderness, Clubbing, Cyanosis - Integumentary Skin: Warm, Dry
[2016-06-08] MEDS: LR 1,000 ML IV SCH (11:12)
[2016-06-08] MEDS: PROBIOTIC BLEND TAB PO SCH (11:12)
[2016-06-08 12:37] VITALS: BMI 29.9
--- NOTE | 2016-06-08 13:26 | GENMEDPROG ---
Subjective Note: Patient sitting up in chair. He states he is not feeling as well as he was yesterday he is more sore today. Notes Reviewed: Yes Events from last night noted and discussed with Clinical Staff Current Medication List: Reviewed Currently: Reports: SANTOYO, Sputum, Reflux Sx, Abdominal Pain. Denies: Diarrhea, Nausea and Vomiting, Fever/Chills DVT Prophylaxis: Yes - Physical Examination Vital Signs and I&O: Last Vital Signs Temp 97.6 F 06/08/16 10:41 Pulse 85 06/08/16 10:41 Resp 18 06/08/16 10:41 BP 144/84 06/08/16 10:41 Pulse Ox 98 06/08/16 07:06 Oxygen Pulse Oxygen Saturation 98 O2 Device Room Air Oxygen Flow Rate 1 Fraction of Inspired Oxygen ( FIO2) Intake & Output 06/05/16 06/06/16 06/07/16 06/08/16 23:59 23:59 23:59 23:59 Intake Total 5723 5867 3166 668 Output Total 4675 4670 4127 1840 Balance 1048 0891 -767 -1178 Patient's weight 77.791 kg 77.423 kg 79.56 kg 79.124 kg General: Alert, Oriented x3, No acute distress, Well appearing, Well nourished HEENT: Normal (Normocephalic, atraumatic;EOMI.Sclera white, Nares patent, without discharge or bleeding. No oropharyngeal lesions or erythema. Mucous membranes are dry.) Neck: Non-tender, Full range of motion, Normal Trachea alignment, Normal inspection (No cervical lymphadenopathy. No supraclavicular lymphadenopathy.), No Masses palpable, Supple Lymphatics: Normal (No lymph node swelling or pain.) Respiratory: Normal - CTA. negative: Rales, Rhonchi, Wheezes Cardiovascular: Regular rate and rhythm (No bradycardia or tachycardia), Normal S1, No Gallops,Rubs/Murmurs, Normal S2, Good Pedal Pulses (DP pulses 2+ bilaterally) GI: Normal bowel sounds (normal active sounds), No hepatospenomegaly, No masses , Tenderness (Incisional) Extremities/Musculoskeletal: Normal pulses (DP pulses 2+ bilaterally) Skin: Warm,Dry and Intact, No rashes, No significant lesion Neurological: Strength at 5/5 X4 ext (Motor 5/5 throughout.), Normal tone, Cranial nerves 3-12 NL ( 2-12 grossly intact.) Psych/Mental Status: Appropriate, Normal Affect Lab/DI/Studies Reviewed: Laboratory Results - last 24 hr 06/07/16 06/08/16 06/08/16 06:10 04:45 04:45 WBC 4.9 RBC 3.47 L Hgb 10.8 L Hct 31.8 L MCV 92 MCH 31.3 MCHC 34.1 RDW 14.0 Plt Count 371 MPV 7.6 Neut % (Auto) 41.0 L Lymph % (Auto) 37.7 [place] % (Auto) 12.2 H Eos % (Auto) 7.9 H Baso % (Auto) 1.2 Absolute Neuts (auto) 2.01 Absolute Lymphs (auto) 1.81 Sodium 138 Potassium 3.8 Chloride 100 Carbon Dioxide 33 Anion Gap 9 BUN 4 L Creatinine 0.70 Estimated GFR (MDRD) > 60 Glucose 103 H Calculated Osmolality 263 L Calcium 8.5 Magnesium 1.50 L 06/08/16 04:45 WBC RBC Hgb Hct MCV MCH MCHC RDW Plt Count MPV Neut % (Auto) Lymph % (Auto) [place] % (Auto) Eos % (Auto) Baso % (Auto) Absolute Neuts (auto) Absolute Lymphs (auto) Sodium Potassium Chloride Carbon Dioxide Anion Gap BUN Creatinine Estimated GFR (MDRD) Glucose Calculated Osmolality Calcium Magnesium 1.70 - Assessment (1) Abscess of sigmoid colon due to diverticulitis Acute K57.20 - DVTRCLI OF LG INT W PERFORATION AND ABSCESS W/O BLEEDING Comment/Plan: Doing well. Tolerating p.o.. Patient to discharge today. (2) Hypertension Acute I10 - ESSENTIAL (PRIMARY) HYPERTENSION Qualifiers: Hypertension type: essential hypertension Qualified Code(s): I10 - Essential (primary) hypertension Comment/Plan: Blood pressure currently acceptable. (3) Emphysema with chronic bronchitis Acute J44.9 - CHRONIC OBSTRUCTIVE PULMONARY DISEASE, UNSPECIFIED Comment/ Plan: Continue supportive care. No evidence of decompensation. (4) Asthma Acute J45.909 - UNSPECIFIED ASTHMA, UNCOMPLICATED Qualifiers: Asthma severity: moderate persistent Asthma complication type: uncomplicated Qualified Code(s): J45.40 - Moderate persistent asthma, uncomplicated Comment/Plan: Stable, no wheezes on exam. Continue p.r.n. nebulizers. (5) History of depression Chronic Z86.59 - PERSONAL HISTORY OF OTHER MENTAL AND BEHAVIORAL DISORDERS Comment/Plan: Noted he stated that he used to take Prozac in the past but when off it because he did feel like it was working any more. (6) Hypercholesterolemia Acute E78.00 - PURE HYPERCHOLESTEROLEMIA, UNSPECIFIED Comment/Plan: Patient states he used to be on medication but stop taking it because he could not afford it. Will start him on something that is on the 4 dollar list at discharge. - Plan Stable for discharge home Disposition Plan: home soon Case Care Discussed with: Patient, Consultants, Family Education/Counseling Given To: Patient Education/Counseling Given Regarding: Diagnosis, Treatment, Prognosis, Follow Up , Disposition Plan Total Time: 45 minutes Critical Care: No Couseling Time (>50% in counseling/coordination): No
== END 2016-06-08 14:13 | disposition home or self-care (01) | DRG 330 ==
LOC: ED 04:30 → EDINP 08:23 → TUOBSINP 12:44 → MPS3 17:30
PROVIDERS: ADMIT Hospitalist; ATTEND Surgery
PROC: 0DTN0ZZ Resection of Sigmoid Colon, Open Approach (ICD-10-PCS; principal; 2016-05-23)
PROC: 0D1N0Z4 Bypass Sigmoid Colon to Cutaneous, Open Approach (ICD-10-PCS; 2016-05-23)
PROC: 05HM33Z Insertion of Infusion Device into Right Internal Jugular Vein, Percutaneous Approach (ICD-10-PCS; 2016-05-23)
PROC: B543ZZA Ultrasonography of Right Jugular Veins, Guidance (ICD-10-PCS; 2016-05-23)
DX: K57.20 Diverticulitis of large intestine with perforation and abscess without bleeding (principal); I10 Essential (primary) hypertension; J45.909 Unspecified asthma, uncomplicated; J44.9 Chronic obstructive pulmonary disease, unspecified; E78.00 Pure hypercholesterolemia, unspecified; Z79.899 Other long term (current) drug therapy; Z87.891 Personal history of nicotine dependence; F41.9 Anxiety disorder, unspecified
CPT/HCPCS: 36415; 51798; 72192; 74000; 74020; 74022; 74177; 80048; 80053; 82270; 83735; 85025; 85610; 86850; 86900; 86901; 93005; 94640; 96361; 96365; 96372; 96375; 96376; 99284; A4216; A9698; G0237; J0131; J0330; J1100; J1170; J1642; J1650; J1940; J1956; J2250; J2270; J2370; J2405; J2543; J2710; J3010; J3480; J3490; J7040; J7060; J7620; P9041; S0164